=== PATIENT | male | born 1945 | race Caucasian/White ===

== ENCOUNTER → 2019-01-11 12:03 | Outpatient (CLI) | payer MEDICARE, OTHER, SELFPAY ==
--- NOTE | 2019-01-11 12:14 | XR_ITS ---
PROCEDURE: XR FINGER LT MIN 2V CLINICAL INDICATION: LT THUMB INJURY Smashing injury with pain COMPARISON: No exams were available for comparison FINDINGS: There is a longitudinal fracture present involving the distal phalanx of the thumb. The fracture is nondisplaced. No obvious articular involvement at the interphalangeal joint. No radiopaque foreign body IMPRESSION: Nondisplaced longitudinal fracture distal phalanx of the thumb Dictated by: Marcell Briscoe MD 01/11/2019 12:34 Electronically signed by Marcell Briscoe MD in [place] 01/11/2019 12:34
== END ==
PROVIDERS: PCP Physician Assistant; Visit Provider Physician Assistant
DX: S69.92XA Unspecified injury of left wrist, hand and finger(s), initial encounter (principal)
CPT/HCPCS: 73140

== ENCOUNTER → 2020-05-20 10:58 | Outpatient (POV) | payer MEDICARE, OTHER, SELFPAY | PROVIDERS: Visit Provider Dermatology | DX: Z00.00 Encounter for general adult medical examination without abnormal findings (principal) ==

== ENCOUNTER → 2021-03-17 10:33 | Outpatient (CLI) | payer MEDICARE, OTHER, SELFPAY | PROVIDERS: Visit Provider Nurse Practitioner | DX: Z20.822 Contact with and (suspected) exposure to COVID-19 (principal) | CPT/HCPCS: C9803; U0003; U0005 ==

== ENCOUNTER → 2021-03-23 08:27 | Outpatient (CLI) | payer MEDICARE, OTHER, SELFPAY | PROVIDERS: Visit Provider Nurse Practitioner | DX: Z20.822 Contact with and (suspected) exposure to COVID-19 (principal) | CPT/HCPCS: C9803; U0003; U0005 ==

== ENCOUNTER → 2022-04-29 14:35 | Outpatient (CLI) | payer MEDICARE, OTHER, SELFPAY ==
--- NOTE | 2022-04-29 14:48 | ECG_ITS ---
APPROVED REPORT Exam: Resting ECG HR:80 bpm ECG Measurements Heart Rate 80 AXES AZ 188 P 83 QRSd 150 QRS -68 QT 389 T 47 QTc 426 Conclusion SINUS RHYTHM WITH OCCASIONAL SUPRAVENTRICULAR PREMATURE COMPLEXES RIGHT BUNDLE BRANCH BLOCK [120+ ms QRS DURATION, UPRIGHT V1, 40+ ms S IN I/aVL/V4/V5/V6] LEFT ANTERIOR FASCICULAR BLOCK [QRS AXIS <= -45, QR IN I, RS IN II] VOLTAGE CRITERIA FOR LVH [MEETS CRITERIA IN ONE OF: R(aVL), S(V1), R(V5), R(V5/V6)+S(V1)] POSSIBLE SEPTAL MYOCARDIAL INFARCTION , PROBABLY OLD [30 ms Q WAVE IN V1/V2] ABNORMAL ECG UNCONFIRMED REPORT Electronically signed by : Thanh Jo MD 04/29/2022 17:04:57
== END ==
PROVIDERS: PCP Family Medicine; Visit Provider Family Medicine
DX: Z01.810 Encounter for preprocedural cardiovascular examination (principal)
CPT/HCPCS: 93005

== ENCOUNTER → 2022-05-04 14:32 | Outpatient (CLI) | payer MEDICARE, OTHER, BC, SELFPAY | PROVIDERS: PCP Family Medicine; Visit Provider Nurse Practitioner Family | DX: R94.31 Abnormal electrocardiogram [ECG] [EKG] (principal); Z01.810 Encounter for preprocedural cardiovascular examination | CPT/HCPCS: 93306 ==

== ENCOUNTER → 2022-05-05 11:08 | Outpatient (CLI) | payer MEDICARE, BC, SELFPAY | PROVIDERS: PCP Family Medicine; Visit Provider Nurse Practitioner Family | DX: R94.31 Abnormal electrocardiogram [ECG] [EKG] (principal); Z01.810 Encounter for preprocedural cardiovascular examination | CPT/HCPCS: 78452; 93017; A9502; J2785 ==

== ENCOUNTER 2023-12-04 09:55 | Inpatient (IN) | payer MEDICARE, BC, SELFPAY ==
[2023-12-04] VITALS (19 sets, daily range): BP systolic 95–198; BP diastolic 56–90; PULSE 45–84; RESP 12–26; TEMP 35.7–36.8; O2SAT 94–99; BMI 24.3; BMI 23.7
--- NOTE | 2023-12-04 | IR_ITS ---
APPROVED REPORT Patient Location: Emergent Office Manager: LENA Guallpa RT (R) PROCEDURES Left heart catheterization Left ventriculogram Selective coronary angiogram Placement of the emergent right internal jugular vein access with temporary transvenous pacemaker placement to the right ventricle Drug-eluting stent deployment to the mid LAD Drug-eluting stent deployment to the second obtuse marginal artery within the circumflex artery INDICATION Acute coronary syndrome, Third-degree heart block, Asystole, Coronary artery disease Informed consent was obtained prior to the procedure. COMPLICATIONS None Estimated Blood Loss: Less than 10 mls TECHNIQUE One percent lidocaine used to anesthetize the right anterior aspect of the wrist. The right radial artery was accessed via the Seldinger technique. A 6 Anguillan sheath was placed in the right radial artery. 2.5 mg of Verapamil, 800 mcg of nitroglycerin, 1mg Lidocaine and 5000 U Heparin were given through the arterial sheath. The papa catheter was also used to perform left heart catheterization, left ventriculogram and selective coronary angiogram. During the diagnostic angiogram the temporary transcutaneous pacemaker would no longer capture and patient experienced prolonged episode of asystole. Just prior to starting chest compressions patient started to recover with intrinsic beats. The right internal jugular vein was already sterilely prepped therefore immediate access was obtained in the right internal jugular vein and a 5 Anguillan sheath was placed. Pacemaker wire had already been prepped prior to the patient's arrival into the Analytical Data Scientist in anticipation for a pacemaker in the temporary transvenous pacemaker was placed into the right ventricular septal side which immediately captured with a heart rate of 80. At this point therapeutic heparin was administered giving a therapeutic ACT and it was decided to revascularize the mid LAD and circumflex artery in the event these were ischemic lesions contributing to the ischemic third-degree heart block. A Choice PT extra-support wire was placed into the mid LAD and a 3.5 x 12 mm Watson frontier stent was deployed at 20 shahrzad reducing the stenosis. A 3.5 x 8 mm noncompliant balloon was deployed in the midportion at 24 shahrzad to post dilate. Spasm occurred on both ends of the stent therefore 800 mcg of intracoronary nitroglycerin were administered. An additional Choice PT extra-support wire was placed into the second obtuse marginal artery where a 2.75 x 18 mm Daniel frontier stent was deployed in the second obtuse marginal artery at 18 shahrzad reducing the severe stenosis to 0%. GALILEO-3 flow was present before and after the procedure. At the end of the procedure patient had an intrinsic rate of 83 therefore the pacemaker was set to VVI of 70 with an output of 10 mA. The apparatus was removed the sheath was removed the right IJ and transvenous pacemaker were secured in place with Tegaderm and patient was transferred to the postop holding in stable condition ANGIOGRAPHIC RESULTS The left main artery Normal The left anterior descending artery Has proximal 40 to 50% stenosis which then extends into a medium sized first diagonal artery producing an ostial 50% stenosis. Distal to the first diagonal artery the mid LAD has a concentric 80% stenosis. The LAD is large and wraps the apex The circumflex artery Is a large-caliber vessel with mild diffuse luminal regularities in the proximal and midportion which extends mid first obtuse marginal artery. The second obtuse marginal artery is large and has proximal 80% stenosis The right coronary artery Is codominant and has proximal 30% calcified stenoses with distal 20% stenosis The ECHAVARRIA ventriculogram reveals Normal 65% The left ventricular end-diastolic pressure 10 mmHg IMPRESSION Third-degree AV block of unknown etiology possibly multifactorial from combination of beta-blockers and possibly ischemic produced Successful stenting of the mid LAD severe disease reduced to 0% with 1 drug-eluting stent Successful stenting of the large second obtuse marginal artery severe disease reduced to 0% with 1 drug-eluting stent Successful placement of temporary transvenous pacemaker from the right internal jugular vein with implantation within the right ventricle along the high septal side Normal ejection fraction Normal LVEDP PLAN 1. Plavix and aspirin 2. Maintain VVI pacemaker at 70 overnight with plans to proceed with permanent pacemaker placement tomorrow 3. LDL less than 55 to be 2 that high intensity statin 4. Keep transcutaneous pacemaker in place in the event the transvenous pacer comes dislodged 5. Echocardiogram in the morning 6. N.p.o. after midnight for anticipated pacemaker placement in the morning 7. Patient has a low LVEDP with normal ejection fraction and should be able to tolerate IV fluids in the event of hypotension Electronically signed by : Arnulfo Arreola MD 12/04/2023 11:53:30
--- NOTE | 2023-12-04 09:57 | ECG_ITS ---
APPROVED REPORT Exam: Resting ECG HR:39 bpm ECG Measurements Heart Rate 39 AXES QRSd 154 QRS -71 QT 499 T -35 QTc 425 Conclusion third degree heart block ST DEPRESSION, CONSIDER SUBENDOCARDIAL INJURY [0.1+ mV ST DEPRESSION] CRITICAL TEST RESULT UNCONFIRMED REPORT Electronically signed by : DESTINEY BABIN, 12/04/2023 16:30:21
--- NOTE | 2023-12-04 10:00 | PC.NURSE ---
nursing out to the awning to assist pt out of the car. pt noted to be diaphoretic,confused,weak, and lethargic. states symptoms started approx 0920 while pt was folding clothes. pt had a syncopal episode and hit his head. MD at bedside
--- NOTE | 2023-12-04 10:01 | PC.NURSE ---
fsbs 199.
--- NOTE | 2023-12-04 10:10 | PC.NURSE ---
speaking with Dr Arreola
--- NOTE | 2023-12-04 10:21 | CT_ITS ---
PROCEDURE INFORMATION: Exam: CT Head Without Contrast Exam date and time: 12/04/2023 10:30 AM Age: 77 years old Clinical indication: Injury or trauma; Additional info: Fall TECHNIQUE: Imaging protocol: Computed tomography of the head without contrast. Radiation optimization: All CT scans at this facility use at least one of these dose optimization techniques: automated exposure control; mA and/or kV adjustment per patient size (includes targeted exams where dose is matched to clinical indication); or iterative reconstruction. COMPARISON: No relevant prior studies available. FINDINGS: Brain: Patchy hypoattenuation in the periventricular and subcortical white matter, consistent with chronic small vessel ischemia. No CT evidence of acute ischemia. No acute hemorrhage. No mass effect or midline shift. Cerebral ventricles: No ventriculomegaly. Paranasal sinuses: Visualized sinuses are unremarkable. No fluid levels. Mastoid air cells: Visualized mastoid air cells are well aerated. Orbital cavities: Bilateral lens extractions. Bones: Unremarkable. No acute fracture. Soft tissues: Unremarkable. IMPRESSION: No acute intracranial abnormality.
[2023-12-04 10:25] LABS: Lactate Venous 3.8 mmol/L (0.4-2.0); VBG Base Excess -1.2 mmol/L (-2.4-2.3); VBG HCO3 22.1 mmol/L (23-30); VBG Oxygen Saturation 95.5 % (50-70); VBG PCO2 29.8 mmol/L (35-51); VBG PH 7.49 mmol/L (7.31-7.41); VBG PO2 71.7 mmol/L (28-40); VBG Total CO2 23.1 mmol/L (23-27)
--- NOTE | 2023-12-04 10:38 | PC.NURSE ---
pt off unit with cathlab
[2023-12-04 10:39] LABS: Chloride 103 mmol/L (98-107); Sodium 137 mmol/L (136-145)
[2023-12-04 10:40] LABS: Potassium 3.4 mmoL/L (3.5-5.1)
[2023-12-04 10:42] LABS: Blood Urea Nitrogen 22 mg/dl (9-20); Creatinine Clearance Estimated 66 mL/min (50-200); Estimated Glomerular Filt Rate 93 ml/min (>60); GFR (African American) 113 ML/MIN (>60)
[2023-12-04 10:43] LABS: Anion Gap 14.4 mEq/L (5-15); Calcium 9.7 mg/dl (8.4-10.2); Carbon Dioxide 23 mmol/L (22.0-30.0); Glucose 206 mg/dl (74-100)
[2023-12-04 10:46] LABS: Basophils # 0.1 K/mm3 (0-0.2); Basophils % 1.1 % (0.1-2.0); Eosinophils # 0.4 K/mm3 (0.0-0.4); Eosinophils % 3.8 % (0.1-12.0); Hematocrit 44.3 % (42.0-52.0); Hemoglobin 15.4 g/dL (14.1-18.0); Lymphocytes # 5.3 K/mm3 (0.7-4.5); Lymphocytes % 45.8 % (10-50); Mean Corpuscular HGB Conc 34.8 g/dL (31.8-35.4); Mean Corpuscular Hemoglobin 32.6 pg (27.0-31.2); Mean Corpuscular Volume 93.7 fl (80-94); Mean Platelet Volume 10.8 fl (7.4-10.4); Monocytes # 0.9 K/mm3 (0.1-1.0); Monocytes % 7.9 % (1.7-9.3); Neutrophils # 4.8 K/mm3 (1.8-7.8); Neutrophils % 41.4 % (37.0-80.0); Platelet Count 155 K/mm3 (142-424); Red Blood Count 4.73 M/mm3 (4.60-6.20); Red Cell Distribution Width 13.7 % (11.5-17.5); White Blood Count 11.5 K/mm3 (4.8-10.8)
--- NOTE | 2023-12-04 10:50 | HMH.EDGENADL ---
Discharge Plan Disposition Patient Disposition: Admitted Clinical Impressions Clinical Impression: Third degree heart block, Syncope, Hematoma of scalp Discharge ED Provider: Mary Hui General Adult HPI General Chief complaint: Syncope Stated complaint: weak Time Seen by Provider: 12/04/23 10:48 Mode of Arrival: Wheelchair Source of Information: Patient and Spouse Limitations: Altered Mental Status Description of Symptoms (Recalled from ER Triage Doc. 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 Patient reports that he was folding laundry and in his usual state of health around 920 this morning when he suddenly passed out. He states that he woke up feeling very sweaty, nauseated, and generally unwell. He denies any other concerns or complaints and states that he has not had any recent illnesses or issues. Related Data Previous Rx's ?Medication ?Instructions ?Recorded bisoprolol fumarate 5 mg tablet 5 mg PO DAILY #90 tabs 01/05/23 Allergies Allergy/AdvReac Type Severity Reaction Status Date / Time No Known Allergies Allergy Verified 01/05/23 08:29 [facility] Disclaimer: The information contained in this section may have been updated after the patient was seen, as this information can be updated by other users. Medical History Right arm numbness Encounter for pre-operative cardiovascular clearance Abnormal electrocardiogram [ECG] [EKG] Surgical History History of appendectomy Family History Other No significant family history Social History Smoking Status: Never smoker alcohol intake: never current occupational status: retired Travel in the last 8 weeks: None Other Medical History Have you received the Pneumonia Vaccine: No ROS Obtained: Yes All systems reviewed & no additional complaints except as documented Physical Exam General General appearance: lethargic and in distress Comment: In and out of consciousness, very ill-appearing. Very diaphoretic. Head Head exam: atraumatic and normocephalic Eye Eye exam: Present normal appearance, PERRL and EOMI ENT ENT exam: Present normal oropharynx, mucous membranes dry and normal external ear exam Neck Neck exam: Present normal inspection, full ROM and trachea midline; Absent tenderness Chest Chest inspection: Present normal inspection and symmetric chest wall rise; Absent tenderness Respiratory Respiratory exam: Present normal lung sounds bilaterally; Absent respiratory distress, wheezes, stridor or accessory muscle use Cardiovascular Cardiovascular exam: Present bradycardia and irregular rhythm Abdominal Exam Abdominal exam: Present soft; Absent distention, tenderness or guarding Extremities Exam Extremities exam: Present normal inspection, full ROM and normal capillary refill; Absent tenderness or edema Back Exam Back exam: Present normal inspection and full ROM; Absent tenderness Neurological Exam Neurological exam: Absent alert Expanded Neurological Exam Coma scale eye opening: To voice Coma scale motor response: Obeys commands Coma scale verbal response: Confused Coma scale total: 13 Psychiatric Psychiatric exam: Present anxious Skin Skin exam: Present diaphoresis Medical Decision Making Medical Records Medical records reviewed: Yes I reviewed the patient's medical records. Screening: Per USPSTF and CDC recommendations, given the prevalence of disease in our region, it is our hospital?s policy to screen for HIV and viral Hepatitis for all patients aged 18 and over and those with ongoing risk factors. Shawn Inquiry Pt receiving controlled substance: No Vital Signs: 12/04/23 09:56 Temperature 97.7 F Temperature Source Axillary Pulse Rate [Right] 45 L Respiratory Rate 14 Blood Pressure [Right Arm] 198/90 H Blood Pressure Mean [Right Arm] 126 02 Sat by Pulse Oximetry 99 Oxygen Delivery Method Room Air Lab Data Lab results reviewed: Yes I reviewed the patient's lab results. Lab Results 12/04/23 10:00: WBC 11.5 H, RBC 4.73, Hgb 15.4, Hct 44.3, MCV 93.7, MCH 32.6 H, MCHC 34.8, RDW 13.7, Plt Count 155, MPV 10.8 H, Neut % (Auto) 41.4, Lymph % (Auto) 45.8, Wilkes % (Auto) 7.9, Eos % (Auto) 3.8, Baso % (Auto) 1.1, Neut # (Auto) 4.8, Lymph # (Auto) 5.3 H, Wilkes # (Auto) 0.9, Eos # (Auto) 0.4, Baso # (Auto) 0.1, VBG pH 7.49 H, VBG pCO2 29.8 L, VBG pO2 71.7 H, VBG HCO3 22.1 L, VBG Total CO2 23.1, VBG O2 Saturation 95.5 H, VBG Base Excess -1.2, VBG Lactic Acid 3.8 H, Sodium 137, Potassium 3.4 L, Chloride 103, Carbon Dioxide 23, Anion Gap 14.4, BUN 22 H, Creatinine 0.80, Estimated Creat Clear 66, Estimated GFR 93, Est GFR ( Amer) 113, Glucose 206 H, Calcium 9.7 12/04/23 10:00 12/04/23 10:00 Orders (Tests/Meds): ED MEDICATIONS Generic Name Dose Route Start Last Admin Trade Name Freq PRN Reason Stop Dose Admin Aspirin 300 mg 12/04/23 10:49 Aspirin 300mg Suppository RC 12/04/23 10:50 ONCE ONE Fentanyl Citrate 50 mcg 12/04/23 10:30 Fentanyl 100mcg/2ml Vial IV 12/04/23 22:30 Q3MINP PRN Moderate to Severe Pain (4-10) Fentanyl Citrate 25 mcg 12/04/23 10:30 Fentanyl 250mcg/5ml Vial IV 12/04/23 22:30 Q3MINP PRN Moderate to Severe Pain (4-10) Fentanyl Citrate 50 mcg 12/04/23 10:30 Fentanyl 250mcg/5ml Vial IV 12/04/23 22:30 Q3MINP PRN Moderate to Severe Pain (4-10) Fentanyl Citrate 25 mcg 12/04/23 10:30 Fentanyl 100mcg/2ml Vial IV 12/04/23 22:30 Q3MINP PRN Moderate to Severe Pain (4-10) Flumazenil 0.2 mg 12/04/23 10:30 Flumazenil 0.1mg/Ml 5ml Vial IV 12/04/23 22:30 NEEDED PRN Sedation Glucagon 1 mg 12/04/23 10:50 Glucagon 1 Mg/Ml Vial IV 12/04/23 10:51 ONCE ONE Heparin Sodium (Porcine) 10,000 unit 12/04/23 10:30 Heparin 1,000 Units/Ml 10ml Vial (Ampoule Washing Machine Operator) IV 12/04/23 14:30 NEEDED PRN Emergency Box Home Theatre Technician Heparin Sodium (Porcine) 5,000 unit 12/04/23 10:49 Heparin Sodium 5,000 Unit/Ml Vial IV 12/04/23 10:50 ONCE ONE Hydralazine HCl 20 mg 12/04/23 10:30 Hydralazine 20mg/Ml Vial IV 12/04/23 14:30 ONCE PRN sbp>160 Adenosine 180 mg/ Sodium 90 mls @ 416.399 mls/hr 12/04/23 10:30 Chloride IV 12/04/23 14:30 ONCE PRN fractional flow reserve 180 MCG/KG/MIN Adenosine 90 mg/ Sodium 90 mls @ 832.799 mls/hr 12/04/23 10:30 Chloride IV 12/04/23 14:30 ONCE PRN fractional flow reserve 180 MCG/KG/MIN Sodium Chloride 1,000 mls @ 25 mls/hr 12/04/23 10:30 Sod Chloride 0.9% 500ml Bag IV 12/05/23 10:30 .Q25H JOSEE Dopamine HCl/Dextrose 250 mls @ 8.675 mls/hr 12/04/23 10:52 Dopamine 400mg/250ml D5w IV 01/03/24 10:51 .Q24H JOSEE Protocol 3 MCG/KG/MIN Labetalol HCl 20 mg 12/04/23 10:30 Labetalol 20mg/4ml Syringe IV 12/04/23 14:30 ONCE PRN sbp>160 Midazolam HCl 1 mg 12/04/23 10:30 Midazolam 2mg/2ml Vial IV 12/04/23 22:30 Q3MINP PRN Sedation Midazolam HCl 1 mg 12/04/23 10:30 Midazolam Hcl 1mg/1ml 5ml Vial IV 12/04/23 22:30 Q3MINP PRN Sedation Midazolam HCl 2 mg 12/04/23 10:50 Midazolam 2mg/2ml Vial IV 12/04/23 10:51 ONCE ONE Morphine Sulfate 4 mg 12/04/23 10:49 Morphine 4mg/Ml Syringe IV 12/04/23 10:50 ONCE ONE Naloxone HCl 0.4 mg 12/04/23 10:30 Naloxone 0.4mg/Ml Vial IV 12/04/23 22:30 Q5MINP PRN Decreased Respirations Nitroglycerin 800 mcg 12/04/23 10:30 Nitroglycerin 800mcg/8ml Syr (Ampoule Washing Machine Operator) IA 12/04/23 14:30 NEEDED PRN Emergency Box Home Theatre Technician Ondansetron HCl 4 mg 12/04/23 10:49 Ondansetron 4mg/2ml Vial IV 12/04/23 10:50 ONCE ONE Protamine Sulfate 50 mg 12/04/23 10:30 Protamine Sulfate 50mg/5ml Vial (Ampoule Washing Machine Operator) IV 12/04/23 14:30 ONCE PRN act>200 Discontinued Medications Generic Name Dose Route Start Last Admin Trade Name Juan Carlos PRN Reason Stop Dose Admin Diphenhydramine HCl 50 mg 12/04/23 10:30 Diphenhydramine 50mg/Ml Vial IV 12/04/23 10:31 ONCE ONE Heparin Sodium/Sodium Chloride 3,000 unit 12/04/23 10:30 Heparin 1,000 Units/500ml Ns (Ampoule Washing Machine Operator) IV 12/04/23 10:31 ONCE ONE Lidocaine HCl 20 ml 12/04/23 10:30 Lidocaine 1% 10ml Mdv IJ 12/04/23 10:31 ONCE ONE Lidocaine HCl 20 ml 12/04/23 10:30 Lidocaine 1% 5ml Pf Vial IJ 12/04/23 10:31 ONCE ONE Verapamil HCl 2.5 mg 12/04/23 10:30 Verapamil 2.5mg/Ml 2ml Vial IV 12/04/23 10:31 ONCE ONE ORDERS Category Date Time Status CT head/brain wo con Stat Cat Scan 12/04/23 10:21 Completed Basic Metabolic Panel Stat Lab 12/04/23 10:00 Completed Complete Blood Count Auto Diff Stat Lab 12/04/23 10:00 Completed HIV (1&2) Antibody Rapid Stat Lab 12/04/23 10:00 Received Hep C Ab with Reflex to RNA Stat Lab 12/04/23 10:00 Received Trop I [Troponin I] Stat Lab 12/04/23 10:00 Received Venous Blood Gas Routine RT 12/04/23 10:00 Completed ECG Data Tracing #1: I reviewed this ECG and interpreted as documented below: Third-degree heart block with a ventricular rate of [address]/T wave changes especially in the inferior leads. Concern for acute ischemia. ECG initial impression date: 12/04/23 ECG initial impression time: 09:48 Medical Decision Narrative: In summary, this patient is a 77-year-old male presenting to the Emergency Department for evaluation of syncope, diaphoresis, general weakness, and generally feeling unwell. Differential diagnoses considered include but are not limited to ACS, intracranial hemorrhage, vasovagal syncope, dysrhythmia. Ruling out the most morbid conditions drove assessment. It should be noted patient's history includes frequent PVCs for which she is on metoprolol which may or may not be at goal therapy. This complicates all aspects of care by increasing patient's risk for morbidity. I reviewed patient's past medical records and noted cardiology evaluations for the frequent PVCs noted on routine preop EKG as well as prior echo showing an EF of 55 to 60%. He is on bisoprolol. Patient arrives critically ill with heart rate in the 20s to 30s, recurrent syncope, and he is very ill-appearing with significant diaphoresis. Initial blood pressure was hypertensive. O2 saturation normal. EKG concerning for third-degree heart block. I also noted some subtle ST/T wave changes, unclear if this could potentially be STEMI so I did send EKG to Dr. Arreola with cardiology and consulted him emergently. Patient was given 1 mg of glucagon, 0.5 mg of atropine, rectal aspirin. He was started on dopamine drip at 3 mcg/kg/min without significant improvement in his clinical condition. Given this, decision made to start transcutaneously pacing. Dr. Arreola advised we could activate the Ampoule Washing Machine Operator. He does have a knot on the back of his head from hitting his head after he passed out, so I wanted to go ahead and emergently obtain a CT scan of the head without contrast to rule out significant cranial hemorrhage in the setting of syncope, hypertension, and bradycardia. This was done and I independently interpreted the image prior to radiology read noted no acute intracranial hemorrhage. Patient was given heparin bolus in the ED once this was excluded. I considered obtaining CT cervical spine as well, however this was not done at this time because it was felt that getting the patient back to his room quickly for medical stabilization was more important. Transcutaneous pacing was started and he had good capture at 42 mA with a rate of 70 bpm. Patient did not tolerate this very well with significant pain. He also had vomiting after administration of glucagon. He was given 4 mg of IV Zofran. He was also given 4 mg of IV morphine, which did not help with the pain that he had from the pacing, so then he was given 2 mg of IV Versed. He tolerated this well. He was placed on supplemental oxygen and was monitored continuously on cardiac telemetry. After administration of medications, he tolerated pacing transcutaneously very well. Ultimately, Ampoule Washing Machine Operator was activated and patient was transported there by myself and nursing staff in relatively stable condition. Formal handoff to Ampoule Washing Machine Operator team. I remained at the bedside for entirety of patient's ED stay adjusting pacer, administering medications, and monitoring response. Critical Care Critical Care Time Critical Care Time: Yes Attestation: On 12/04/23, the high probability of a clinically significant, sudden or life threatening deterioration of the following system(s) required my full and direct attention, intervention and personal management. The time I documented below is in addition to time spent performing reported procedures but includes the following listed in this critical care notation. Total Time Total Critical Care Time: 40
[2023-12-04] MEDS: MORPHINE 4MG/ML SYRINGE 4 MG IV (11:07)
[2023-12-04] MEDS: ONDANSETRON 4MG/2ML VIAL 4 MG IV ×2 (11:07→13:00)
[2023-12-04] MEDS: ASPIRIN 300MG SUPPOSITORY 300 MG RC (11:07)
[2023-12-04] MEDS: HEPARIN SODIUM 5,000 UNIT/ML VIAL 5000 UNIT IV (11:07)
[2023-12-04] MEDS: DOPAMINE HCL/D5W 250 ML 8.68 MG IV (11:08)
[2023-12-04] MEDS: GLUCAGON 1 MG/ML VIAL IV (11:08)
[2023-12-04] MEDS: MIDAZOLAM 2MG/2ML VIAL 2 MG IV ×2 (11:08→11:39)
[2023-12-04] MEDS: ATROPINE 1MG/10ML SYRINGE (CRASH CART) 0.5 MG IV (11:12)
[2023-12-04 11:19] LABS: Troponin I < 0.01 ng/ml (0.00-0.034)
[2023-12-04] MEDS: LIDOCAINE 1% 10ML MDV 20 ML IJ (11:38)
[2023-12-04] MEDS: HEPARIN 1,000 UNITS/ML 10ML VIAL (CATH LAB) 10000 UNIT IV (11:39)
[2023-12-04] MEDS: FENTANYL 100MCG/2ML VIAL 50 MCG IV (11:40)
[2023-12-04] MEDS: diphenhydrAMINE 50MG/ML VIAL 50 MG IV (11:40)
[2023-12-04] MEDS: VERAPAMIL 2.5MG/ML 2ML VIAL 2.5 MG IV (11:40)
[2023-12-04] MEDS: NITROGLYCERIN 800MCG/8ML SYR (CATH LAB) 800 MCG IA (11:41)
[2023-12-04] MEDS: 0.9 % SODIUM CHLORIDE 500 ML 25 ML IV (11:41)
[2023-12-04] MEDS: HEPARIN 1,000 UNITS/500ML NS (CATH LAB) 3000 UNIT IV (11:41)
[2023-12-04] MEDS: CLOPIDOGREL 300MG TABLET 600 MG PO (11:46)
[2023-12-04] MEDS: IOPAMIDOL-370 (76%);100ML BOTTLE 170 ML IV (11:59)
[2023-12-04 12:01] LABS: CATHL Activated Clotting Time 267 SEC (74-125)
[2023-12-04 12:01] LABS: CATHL Activated Clotting Time 240 SEC (74-125)
[2023-12-04] MEDS: BELLADONNA ALKALOIDS 60 ML ML PO (13:10)
[2023-12-04 14:22] LABS: Reflex Lactic Add Lactic Reflex
[2023-12-04 14:37] LABS: HIV (1&2) Antibody Rapid NONREACTIVE (NONREACTIVE)
[2023-12-04 15:07] LABS: Lactic Acid Follow Up (RFLX 1) 1.3 mmol/L (0.7-2.1)
--- NOTE | 2023-12-04 16:11 | P.HP_ITS ---
History of Present Illness *Admission Date: 12/04/23 *Reason for visit:: Third-degree heart block s/p transvenous pacing *History of present illness: Nathen Montes is a 77-year-old male with a medical history significant for frequent PVCs who presented to the ED from home after syncope, diaphoresis, and not feeling well. Patient states he was doing well this morning, but while doing laundry around 920 this morning he passed out. He woke up feeling really ill, diaphoretic, nauseous. He was then brought to the hospital via EMS. Workup in the ED significant for EKG showing third-degree heart block, heart rate in 39, with patient diaphoretic, lethargic. Since patient takes bisoprolol at home, patient was given glucagon 1 mg, 0.5 mg atropine, and rectal aspirin. He was started on dopamine drip without significant improvement. Transcutaneous pacing was then started. Cathode Ray Tube Salvage Processor was activated, with head CT was obtained due to hematoma on scalp to rule out intracranial bleed. CT head was negative. S/p PCI with 2 stents in LAD, OM and transvenous right IJ. Case was discussed with ED provider and decision was made to admit patient for third-degree heart block requiring transvenous pacing, CAD s/p [address] Arreola plans to place permanent pacemaker tomorrow morning. [facility] Disclaimer: The information contained in this section may have been updated after the pat ient was seen, as this information can be updated by other users. Medical History Right arm numbness Encounter for pre-operative cardiovascular clearance Abnormal electrocardiogram [ECG] [EKG] Surgical History History of appendectomy Family History Other No significant family history Social History (Updated 12/04/23 @ 12:54 by Brenda Negron RN) Smoking Status: Never smoker alcohol intake: current current occupational status: retired Travel in the last 8 weeks: None Other Medical History Have you received the Flu Vaccine for this season: No Have you received the Pneumonia Vaccine: No Meds Home Medications and Allergies Home Medications ?Medication ?Instructions ?Recorded ?Confirmed ?Type bisoprolol fumarate 5 mg tablet 5 mg PO DAILY #90 tabs 01/05/23 12/04/23 Rx fluorometholone 0.1 % eye 1 drp Eye-Right DAILY 12/04/23 12/04/23 History drops,suspension New Prescriptions to Start Prescriptions: Allergies Allergy/AdvReac Type Severity Reaction Status Date / Time No Known Allergies Allergy Verified 01/05/23 08:29 Exam Data for Last 24 hours Vital signs and Labs for Last 24 Hours: Temp Pulse Resp BP Pulse Ox O2 Del Method O2 Flow Rate 96.3 F L 70 18 127/70 96 Room Air 5 12/04/23 14:15 12/04/23 15:15 12/04/23 15:15 12/04/23 15:15 12/04/23 15:15 12/04/23 15:15 12/04/23 11:12 Laboratory Results - last 24 hr 12/04/23 10:00: WBC 11.5 H, RBC 4.73, Hgb 15.4, Hct 44.3, MCV 93.7, MCH 32.6 H, MCHC 34.8, RDW 13.7, Plt Count 155, MPV 10.8 H, Neut % (Auto) 41.4, Lymph % (Auto) 45.8, [place] % (Auto) 7.9, Eos % (Auto) 3.8, Baso % (Auto) 1.1, Neut # (Auto) 4.8, Lymph # (Auto) 5.3 H, [place] # (Auto) 0.9, Eos # (Auto) 0.4, Baso # (Auto) 0.1, VBG pH 7.49 H, VBG pCO2 29.8 L, VBG pO2 71.7 H, VBG HCO3 22.1 L, VBG Total CO2 23.1, VBG O2 Saturation 95.5 H, VBG Base Excess -1.2, VBG Lactic Acid 3.8 H, Sodium 137, Potassium 3.4 L, Chloride 103, Carbon Dioxide 23, Anion Gap 14.4, BUN 22 H, Creatinine 0.80, Estimated Creat Clear 66, Estimated GFR 93, Est GFR ( Amer) 113, Glucose 206 H, Calcium 9.7, Troponin I < 0.01, HIV 1&2 Antibody Rapid Nonreactive 12/04/23 10:39: Activated Clotting Time 240 H* 12/04/23 11:10: Activated Clotting Time 267 H* 12/04/23 14:45: Lactate 1.3 I & O for Last 24 hours: Intake & Output 12/01/23 12/02/23 12/03/23 12/04/23 23:59 23:59 23:59 23:59 Output Total 250 / 250 Balance -250 / -250 Weight 77.111 kg Constitutional Constitutional: no acute distress Comments: Transcutaneous pacing pad intact over chest, transvenous pacing lines intact at right IJ site. *Routine HEENT Exam Head: Present normocephalic Eye: Present EOMI and PERRL ENT: Present mucous membranes moist *Routine Neck Exam Neck: Present supple; Absent lymphadenopathy *Routine Respiratory Exam Respiratory: Present CTA bilaterally *Routine Cardiovascular Exam Cardiovascular: Present RRR *Routine Abdominal Exam Abdominal: Present soft and normoactive bowel sounds; Absent tenderness *Routine Rectal Exam Rectal:: deferred *Routine Genitalia Exam Genitalia:: deferred *Routine Extremities Exam Extremities: Absent cyanosis, clubbing or edema *Routine Skin Exam Skin: Present warm; Absent rash *Routine Neurological Exam Neurological: Present alert and oriented X3 Assessment and Plan *Assessment and plan (1) Syncope: Status: Acute Category: Medical Code(s): R55 - Syncope and collapse (2) Third degree heart block: Status: Acute Category: Medical Code(s): I44.2 - Atrioventricular block, complete Plan Nathen Montes is a 77-year-old male with a medical history significant for frequent PVCs who presented to the ED from home after syncope, diaphoresis, and not feeling well. Patient states he was doing well this morning, but while doing laundry around 920 this morning he passed out. He woke up feeling really ill, diaphoretic, nauseous. He was then brought to the hospital via EMS. Workup in the ED significant for EKG showing third-degree heart block, heart rate in 39, with patient diaphoretic, lethargic. Since patient takes bisoprolol at home, patient was given glucagon 1 mg, 0.5 mg atropine, and rectal aspirin. He was started on dopamine drip without significant improvement. Transcutaneous pacing was then started. Cathode Ray Tube Salvage Processor was activated, with head CT was obtained due to hematoma on scalp to rule out intracranial bleed. CT head was negative. S/p PCI with 2 stents in LAD, OM and transvenous pacing right IJ. Patient reportedly became asystolic during PCI and CPR was performed and ROSC was achieved within 1 minute. Case was discussed with ED provider and decision was made to admit patient for third-degree heart block requiring transvenous pacing, CAD s/p 2 stents. #Syncope #Third-degree heart block #CAD s/p PCI with 2 stents 12/04/2023 #History of PVCs ? Initial EKG revealed third-degree heart block with nonspecific ST wave changes. Unclear if this is ischemic, home bisoprolol related, versus other. - S/p PCI with 2 stents in LAD, OM and transvenous pacing right IJ. ? VVI set for transvenous pacing at 70 bpm. ? Aspirin 81 mg, Plavix 75 mg, atorvastatin 40 mg. ? Avoid beta-blockers, including home bisoprolol. ? Follow-up morning TSH, A1c, lipid panel. ? Follow-up ECHO. ? Dr. Arreola plans to place permanent pacemaker tomorrow morning. N.p.o. at midnight ? Cardiology consulted, pending further recommendations. Lovenox 40 mg Full code
--- NOTE | 2023-12-04 19:15 | PC.NURSE ---
Transvenous pacer box in place, right IJ sheath c/d/i, Pacer box settings as follows: 10mV, 6V, 70p/min, Mode VVI. Low battery light indicator not illuminated.
[2023-12-04] MEDS: diphenhydrAMINE 50MG CAPSULE 50 MG PO (23:37)
[2023-12-04] MEDS: ACETAMINOPHEN 325MG TAB 650 MG PO (23:37)
[2023-12-05] VITALS (24 sets, daily range): BP systolic 90–163; BP diastolic 52–91; PULSE 70–88; RESP 12–20; TEMP 36.5–37.2; O2SAT 94–99; BMI 23.7
--- NOTE | 2023-12-05 | IR_ITS ---
APPROVED REPORT Patient Location: Inpatient Career Consultant: LENA Guallpa RT (R) PROCEDURES 1. Pocket formation for Permanent Pacemaker Placement. 2. Placement of an atrial sensing and pacing coil into the right atrial appendage. 3. Placement of a ventricular sensing and pacing coil in the right ventricular apex. 4. Permanent Pacemaker Placement. INDICATION Third degree heart block Informed consent was obtained prior to the procedure. COMPLICATIONS None Estimated Blood Loss: Less than 10 mls TECHNIQUE 1% Lidocaine with epinephrine used to anesthetized the left anterior aspect of the chest. Scalpel was used to make the initial cutaneous incision while electrocautery was used to dissect down tinto the fascia. The fascia was lifted off the pectoralis muscle and digitally manipulated creating a pocket for the pacemaker. The patient was then placed in Trendelenburg position and the subclavian vein was accessed twice via the Selinger technique, there are two wires in the vein. A 6 [place] sheath was placed under fluoroscopic guidance into the subclavian vein over one of the wires while keeping the other wire in place within the subclavian vein. The dilator was removed from the sheath. Using fluoroscopic guidance, the ventricular lead was placed into the right ventricular apex, screwed and secured into place. Electronic interrogation proved acceptable thresholds and voltage within the lead. Using 3-0 silk, the ventricular lead was then secured into place. Lead was secured to the facia using the 3-0 silk. Following this, the sheath was pealed away. An additional 6 [place] fresh sheath and dilator was placed over the existing wire. Using fluoroscopic guidance, the atrial lead was the placed into the right atrial appendage and screwed and secured in place. Electrical interrogation demonstrated acceptable thresholds and voltage number. The atrial lead was then secured into place using 3-0 silk. 1 gram of Ancef was used to flush the pocket. Following the pacemaker generator being secured to the fascia and in place, Monocryl was used to close the subcutaneous layers while chio were used to close the cutaneous layer. A pressure dressing was placed and the patient was transferred to the postop holding area in stable condition for postoperative care. INTERROGATION Generator Model number: Brittny RILEY DR, [id number] Generator Serial number: [id number] Atrial lead model number: Tendril STS, 52cm, 2087TC Atrial lead serial number: [id number] P-wave: 3.0mV Impedance: 450 ohms Threshold: 0.75V@0.4ms Right Ventricular lead model number: Vitor REYES, 58cm, 2087TC Right Ventricular lead serial number: [id number] R-wave: 6-7mV Impedance: 550 ohms Threshold: 0.5V@0.4ms Pacing Parameters: Mode: DDDR Base/Max Track:60 ppm / 130 ppm No diaphragmatic stimulation at 10 volts. IMPRESSION 1. Successful pocket formation for Permanent Pacemaker Placement. 2. Successful placement of an atrial sensing and pacing coil into the right atrial appendage. 3. Successful placement of a ventricular sensing and pacing coil in the right ventricular apex. 4. Successful permanent Pacemaker Placement. PLAN 1. Post op wound care, follow up office visit Electronically signed by : Arnulfo Arreola MD 12/06/2023 08:15:42
--- NOTE | 2023-12-05 | PC.NURSE ---
Transvenous pacer box in place, right IJ sheath site c/d/i, Pacer box settings as follows: 10mV, 6V, 70p/min, Mode VVI. Low battery light indicator not illuminated. Capture noted on tele.
--- NOTE | 2023-12-05 04:41 | PC.NURSE ---
Patient remained stable since shift change requiring no acute interventions. Dopamine infusing per MAR. Adequate urinary output via urinal. Heart, lung, and abdominal sounds WNL. Patient remained on bedrest r/t TVP. Patient has remained NPO since midnight for cardiac procedure this AM. Transvenous pacer box in place, right IJ sheath c/d/i, Pacer box settings as follows: 10mV, 6V, 70p/min, Mode VVI. Low battery light indicator not illuminated. NAD, VSS.
[2023-12-05 06:55] LABS: Basophils # 0.1 K/mm3 (0-0.2); Basophils % 0.6 % (0.1-2.0); Eosinophils # 0.2 K/mm3 (0.0-0.4); Eosinophils % 2.2 % (0.1-12.0); Hematocrit 40.3 % (42.0-52.0); Hemoglobin 14.3 g/dL (14.1-18.0); Lymphocytes # 1.8 K/mm3 (0.7-4.5); Lymphocytes % 21.2 % (10-50); Mean Corpuscular HGB Conc 35.4 g/dL (31.8-35.4); Mean Corpuscular Hemoglobin 32.4 pg (27.0-31.2); Mean Corpuscular Volume 91.8 fl (80-94); Mean Platelet Volume 9.9 fl (7.4-10.4); Monocytes # 0.6 K/mm3 (0.1-1.0); Monocytes % 7.3 % (1.7-9.3); Neutrophils # 5.8 K/mm3 (1.8-7.8); Neutrophils % 68.7 % (37.0-80.0); Platelet Count 111 K/mm3 (142-424); Red Cell Distribution Width 13.7 % (11.5-17.5); White Blood Count 8.4 K/mm3 (4.8-10.8)
[2023-12-05 07:28] LABS: Albumin Level 3.9 g/dl (3.5-5.0); Chloride 104 mmol/L (98-107); Potassium 3.6 mmoL/L (3.5-5.1); Sodium 136 mmol/L (136-145)
[2023-12-05 07:31] LABS: Alanine Aminotransferase 21 U/L (12-78); Albumin/Globulin Ratio 1.6 (1.1-1.8); Alkaline Phosphatase 55 U/L (38-126); Anion Gap 8.6 mEq/L (5-15); Aspartate Amino Transferase 34 U/L (17-59); Bilirubin,Total 0.7 mg/dl (0.2-1.3); Blood Urea Nitrogen 12 mg/dl (9-20); Carbon Dioxide 27 mmol/L (22.0-30.0); Creatinine Clearance Estimated 66 mL/min (50-200); Estimated Glomerular Filt Rate 109 ml/min (>60); GFR (African American) 132 ML/MIN (>60); Globulin 2.5 g/dL (1.3-3.2); Glucose 107 mg/dl (74-100); Total Protein,Serum 6.4 g/dl (6.3-8.2)
[2023-12-05 07:32] LABS: Calcium 8.6 mg/dl (8.4-10.2); Magnesium 2.1 mg/dl (1.6-2.3)
[2023-12-05 07:40] LABS: Hemoglobin A1C 5.3 % (4.0-6.0)
[2023-12-05 07:45] LABS: HDL Cholesterol 65 mg/dl (40-60)
[2023-12-05 07:56] LABS: Direct LDL Cholesterol 95.57 mg/dL (100-129)
[2023-12-05 08:01] LABS: Thyroid Stimulating Hormone 0.15 uIU/mL (0.465-4.68)
--- NOTE | 2023-12-05 08:20 | HMH.PHAINT1 ---
Pharmacy Intervention Comments: HOME MEDICATION LIST VERIFIED USING LIST FROM OUTPATIENT PHARMACY
[2023-12-05 08:27] LABS: Chol/HDL Ratio 2.8 (1-3.5); Cholesterol 181 mg/dl (140-200); Triglycerides 87 mg/dl (30-150); VLDL Cholesterol 17 mg/dL (0-40)
--- NOTE | 2023-12-05 08:45 | EXP.ACUTE.PN ---
Subjective *Date: 12/05/23 *Time: 08:45 Interval history: Patient is feeling well this morning. He denies feeling any better palpitations. He denies chest pain and shortness of breath. Family is at bedside. He awakes for placement of permanent pacemaker. Following is the cardiac cath report from 12/04/2023: IMPRESSION Third-degree AV block of unknown etiology possibly multifactorial from combination of beta-blockers and possibly ischemic produced Successful stenting of the mid LAD severe disease reduced to 0% with 1 drug-eluting stent Successful stenting of the large second obtuse marginal artery severe disease reduced to 0% with 1 drug-eluting stent Successful placement of temporary transvenous pacemaker from the right internal jugular vein with implantation within the right ventricle along the high septal side Normal ejection fraction Normal LVEDP PLAN 1. Plavix and aspirin 2. Maintain VVI pacemaker at 70 overnight with plans to proceed with permanent pacemaker placement tomorrow 3. LDL less than 55 to be 2 that high intensity statin 4. Keep transcutaneous pacemaker in place in the event the transvenous pacer comes dislodged 5. Echocardiogram in the morning 6. N.p.o. after midnight for anticipated pacemaker placement in the morning 7. Patient has a low LVEDP with normal ejection fraction and should be able to tolerate IV fluids in the event of hypotension 12/04/[address] IMPRESSION: No acute intracranial abnormality. Medical Exam Vital signs and Labs for Last 24 Hours: Vital Signs Temp Pulse Pulse Pulse Resp BP BP 12/05/23 08:00 97.7 F 12/05/23 07:00 70 16 124/72 12/05/23 06:00 70 15 90/67 L 12/05/23 05:00 70 14 130/70 12/05/23 04:00 98.4 F 70 20 120/69 12/05/23 03:00 70 12 96/56 L 12/05/23 02:00 70 12 98/57 L 12/05/23 01:00 70 15 116/66 12/05/23 00:00 70 12/05/23 00:00 70 12/05/23 00:00 98.5 F 70 15 108/62 L 12/04/23 23:00 70 20 126/66 12/04/23 22:00 70 14 110/67 12/04/23 21:00 66 14 128/69 12/04/23 20:00 70 12/04/23 20:00 70 12/04/23 20:00 98.3 F 70 12 114/76 12/04/23 18:53 12/04/23 18:15 84 20 95/75 L 12/04/23 17:15 74 22 137/78 12/04/23 17:00 12/04/23 16:00 97.6 F 12/04/23 16:00 80 12/04/23 16:00 12/04/23 16:00 71 26 H 122/78 12/04/23 15:15 70 18 127/70 12/04/23 15:00 12/04/23 14:45 71 18 120/73 12/04/23 14:15 96.3 F L 73 17 103/64 L 12/04/23 14:00 73 19 117/56 L 12/04/23 13:45 70 19 150/74 H 12/04/23 13:15 78 19 132/79 12/04/23 13:00 74 18 131/79 12/04/23 13:00 12/04/23 12:45 75 18 123/73 12/04/23 12:30 12/04/23 12:30 71 18 130/76 12/04/23 12:28 70 12/04/23 11:12 97.7 F 78 14 124/88 12/04/23 09:56 97.7 F 45 L 14 BP Pulse Ox O2 Del Method O2 Flow Rate 12/05/23 08:00 12/05/23 07:00 94 L Room Air 12/05/23 06:00 95 Room Air 12/05/23 05:00 95 Room Air 12/05/23 04:00 95 Room Air 12/05/23 03:00 96 Room Air 12/05/23 02:00 96 Room Air 12/05/23 01:00 95 Room Air 12/05/23 00:00 12/05/23 00:00 12/05/23 00:00 95 Room Air 12/04/23 23:00 96 Room Air 12/04/23 22:00 95 Room Air 12/04/23 21:00 95 Room Air 12/04/23 20:00 12/04/23 20:00 12/04/23 20:00 96 Room Air 12/04/23 18:53 Room Air 12/04/23 18:15 96 Room Air 12/04/23 17:15 97 Room Air 12/04/23 17:00 Room Air 12/04/23 16:00 12/04/23 16:00 12/04/23 16:00 Room Air 12/04/23 16:00 97 Room Air 12/04/23 15:15 96 Room Air 12/04/23 15:00 Room Air 12/04/23 14:45 94 L Room Air 12/04/23 14:15 99 Room Air 12/04/23 14:00 97 Room Air 12/04/23 13:45 99 Room Air 12/04/23 13:15 94 L Room Air 12/04/23 13:00 96 Room Air 12/04/23 13:00 Room Air 12/04/23 12:45 96 Room Air 12/04/23 12:30 Room Air 12/04/23 12:30 97 Room Air 12/04/23 12:28 12/04/23 11:12 Nasal Cannula 5 12/04/23 09:56 198/90 H 99 Room Air Intake and Output 12/04/23 12/05/23 12/05/23 19:59 03:59 11:59 Intake Total 240 / 240 200 / 440 0 / 440 Output Total 250 / 250 600 / 850 600 / 1450 Balance -10 / -10 -400 / -410 -600 / -1010 Intake: Intake, Oral Amount 240 / 240 200 / 440 0 / 440 Output: Output, Urine Amount 250 / 250 600 / 850 600 / 1450 Other: Number of Voids 1 1 Weight 170 lb 1.386 oz Patient Weight 12/05/23 11:59 Weight 170 lb 1.386 oz Laboratory Results - last 24 hr 12/04/23 10:00: WBC 11.5 H, RBC 4.73, Hgb 15.4, Hct 44.3, MCV 93.7, MCH 32.6 H, MCHC 34.8, RDW 13.7, Plt Count 155, MPV 10.8 H, Neut % (Auto) 41.4, Lymph % (Auto) 45.8, [place] % (Auto) 7.9, Eos % (Auto) 3.8, Baso % (Auto) 1.1, Neut # (Auto) 4.8, Lymph # (Auto) 5.3 H, [place] # (Auto) 0.9, Eos # (Auto) 0.4, Baso # (Auto) 0.1, VBG pH 7.49 H, VBG pCO2 29.8 L, VBG pO2 71.7 H, VBG HCO3 22.1 L, VBG Total CO2 23.1, VBG O2 Saturation 95.5 H, VBG Base Excess -1.2, VBG Lactic Acid 3.8 H, Sodium 137, Potassium 3.4 L, Chloride 103, Carbon Dioxide 23, Anion Gap 14.4, BUN 22 H, Creatinine 0.80, Estimated Creat Clear 66, Estimated GFR 93, Est GFR ( Amer) 113, Glucose 206 H, Calcium 9.7, Troponin I < 0.01, HIV 1&2 Antibody Rapid Nonreactive 12/04/23 10:39: Activated Clotting Time 240 H* 12/04/23 11:10: Activated Clotting Time 267 H* 12/04/23 14:45: Lactate 1.3 12/05/23 05:31: WBC 8.4 D, RBC 4.40 L, Hgb 14.3, Hct 40.3 L, MCV 91.8, MCH 32.4 H, MCHC 35.4, RDW 13.7, Plt Count 111 L D, MPV 9.9, Neut % (Auto) 68.7, Lymph % (Auto) 21.2, [place] % (Auto) 7.3, Eos % (Auto) 2.2, Baso % (Auto) 0.6, Neut # (Auto) 5.8, Lymph # (Auto) 1.8, [place] # (Auto) 0.6, Eos # (Auto) 0.2, Baso # (Auto) 0.1, Sodium 136, Potassium 3.6, Chloride 104, Carbon Dioxide 27, Anion Gap 8.6, BUN 12 D, Creatinine 0.70, Estimated Creat Clear 66, Estimated GFR 109, Est GFR ( Amer) 132, Glucose 107 H D, Hemoglobin A1c 5.3, Calcium 8.6, Magnesium 2.1, Total Bilirubin 0.7, AST 34, ALT 21, Alkaline Phosphatase 55, Total Protein 6.4, Albumin 3.9, Globulin 2.5, Albumin/Globulin Ratio 1.6, Triglycerides 87, Cholesterol 181, LDL Cholesterol Direct 95.57 L, VLDL Cholesterol 17, HDL Cholesterol 65 H, Cholesterol/HDL Ratio 2.8, TSH 0.15 L I & O for Labs for Last 24 Hours: Intake & Output 12/02/23 12/03/23 12/04/23 12/05/23 11:59 11:59 11:59 11:59 Intake Total 440 / 440 Output Total 1450 / 1450 Balance -1010 / -1010 Weight 170 lb 170 lb 1.386 oz Constitutional: Present no acute distress Comment:: rocha; appears comfortable lying in bed with family at bedside. Respiratory: Present CTA bilaterally (Anterior and posteriorly) Cardiac: Present Reg Rate and Rhythm (Some paced beats) and pedal pulses present GI: Present soft and normal bowel sounds; Absent distention, tenderness or guarding Extremities: Present normal inspection and full ROM; Absent tenderness, edema or calf tenderness Neuro: Present alert, awake and oriented x 3 Assessment and Plan *Assessment and plan (1) Third degree heart block: Status: Acute Category: Medical Code(s): I44.2 - Atrioventricular block, complete (2) Stented coronary artery: Status: Acute Category: Surgical Code(s): Z95.5 - Presence of coronary angioplasty implant and graft (3) Syncope: Status: Acute Category: Medical Code(s): R55 - Syncope and collapse (4) Hematoma of scalp: Status: Acute Category: Medical Code(s): S00.03XA - Contusion of scalp, initial encounter (5) CAD (coronary artery disease): Status: Acute Category: Medical Code(s): I25.10 - Atherosclerotic heart disease of [place] coronary artery without angina pectoris Plan For permanent pacer today. Additional documentation: Nathen Montes is a 77-year-old male with a medical history significant for frequent PVCs who presented to the ED from home after syncope, diaphoresis, and not feeling well. Patient states he was doing well this morning, but while doing laundry around 920 this morning he passed out. He woke up feeling really ill, diaphoretic, nauseous. He was then brought to the hospital via EMS. Workup in the ED significant for EKG showing third-degree heart block, heart rate in 39, with patient diaphoretic, lethargic. Since patient takes bisoprolol at home, patient was given glucagon 1 mg, 0.5 mg atropine, and rectal aspirin. He was started on dopamine drip without significant improvement. Transcutaneous pacing was then started. Ultrasonic Solderer was activated, with head CT was obtained due to hematoma on scalp to rule out intracranial bleed. CT head was negative. S/p PCI with 2 stents in LAD, OM and transvenous pacing right IJ. Patient reportedly became asystolic during PCI and CPR was performed and ROSC was achieved within 1 minute. Case was discussed with ED provider and decision was made to admit patient for third-degree heart block requiring transvenous pacing, CAD s/p 2 stents. #Syncope #Third-degree heart block #CAD s/p PCI with 2 stents 12/04/2023 #History of PVCs ? Initial EKG revealed third-degree heart block with nonspecific ST wave changes. Unclear if this is ischemic, home bisoprolol related, versus other. - S/p PCI with 2 stents in LAD, OM and transvenous pacing right IJ. ? VVI set for transvenous pacing at 70 bpm. ? Aspirin 81 mg, Plavix 75 mg, atorvastatin 40 mg. ? Avoid beta-blockers, including home bisoprolol. ? Follow-up morning TSH, A1c, lipid panel. ? Follow-up ECHO. ? Dr. Arreola plans to place permanent pacemaker tomorrow morning. N.p.o. at midnight ? Cardiology consulted, pending further recommendations. Lovenox 40 mg Full code
--- NOTE | 2023-12-05 09:22 | P.CONCA_ITS ---
History of Present Illness History of Present Illness Consult date: 12/05/23 Requesting physician: Stephane Levine Chief complaint: syncope, diaphoresis Additional Medical History:: 1. History of PVCs 2. Abnormal EKG with history of right bundle branch block and left anterior fascicular block A. Lexiscan Myoview, 04/2022, likely normal with no ischemia or wall motion abnormality.. B. Echocardiogram, 04/2022, EF 55-60% with diastolic dysfunction, grade 2. C. Syncopal episode, 12/04/2023, felt secondary to third-degree AV block with placement of temporary pacemaker, 12/04/2023 3. Hyperlipidemia 4. Ex-smoker who works for [employer] 5. Coronary artery disease A. [place] to mid LAD, large second OM, 12/04/2023, EF 65% with LVEDP 10 mmHg. History of present illness: Nathen Montes is a 77-year-old male with a medical history significant for frequent PVCs who presented to the ED from home after syncope, diaphoresis, and not feeling well. Patient states he was doing well this morning, but while doing laundry around 920 this morning he passed out. He woke up feeling really ill, diaphoretic, nauseous. He was then brought to the hospital via EMS. Workup in the ED significant for EKG showing third-degree heart block, heart rate in 39, with patient diaphoretic, lethargic. Since patient takes bisoprolol at home, patient was given glucagon 1 mg, 0.5 mg atropine, and rectal aspirin. He was started on dopamine drip without significant improvement. Transcutaneous pacing was then started. Registered Public Health Nurse was activated, with head CT was obtained due to hematoma on scalp to rule out intracranial bleed. CT head was negative. S/p PCI with 2 stents in LAD, OM and transvenous right IJ. Case was discussed with ED provider and decision was made to admit patient for third-degree heart block requiring transvenous pacing, CAD s/p [address] Arreola plans to place permanent pacemaker tomorrow morning. The above per Dr. Levine. The above events confirmed with the patient. Patient is seen in the company of his and son. He is feeling better today. Questions regarding placement of permanent pacemaker answered and patient agrees to proceed. Preliminary echocardiogram today shows ejection fraction greater than 55% Telemetry shows intermittent pacing with capture. [facility] Disclaimer: The information contained in this section may have been updated after the patient was seen, as this information can be updated by other users. Medical History Right arm numbness Encounter for pre-operative cardiovascular clearance Abnormal electrocardiogram [ECG] [EKG] Surgical History History of appendectomy Family History Other No significant family history Social History (Updated 12/04/23 @ 12:54 by Brenda Negron RN) Smoking Status: Never smoker alcohol intake: current current occupational status: retired Travel in the last 8 weeks: None Review of Systems Review of Systems Review of systems:: pertinent systems reviewed and negative unless documented below Constitutional Constitutional: Reports as per HPI *Cardiovascular Cardiovascular: Denies chest pain and Denies dyspnea *Respiratory Respiratory: Denies dyspnea *Neurologic Neurologic: Reports as per HPI Exam Data for Last 24 hours Vital signs and Labs for Last 24 Hours: Temp Pulse Resp BP Pulse Ox O2 Del Method O2 Flow Rate 97.7 F 77 17 124/80 97 Room Air 5 12/05/23 08:00 12/05/23 09:00 12/05/23 09:00 12/05/23 09:00 12/05/23 09:00 12/05/23 09:00 12/04/23 11:12 Laboratory Results - last 24 hr 12/04/23 10:00: WBC 11.5 H, RBC 4.73, Hgb 15.4, Hct 44.3, MCV 93.7, MCH 32.6 H, MCHC 34.8, RDW 13.7, Plt Count 155, MPV 10.8 H, Neut % (Auto) 41.4, Lymph % (Auto) 45.8, Pope % (Auto) 7.9, Eos % (Auto) 3.8, Baso % (Auto) 1.1, Neut # (Auto) 4.8, Lymph # (Auto) 5.3 H, Pope # (Auto) 0.9, Eos # (Auto) 0.4, Baso # (Auto) 0.1, VBG pH 7.49 H, VBG pCO2 29.8 L, VBG pO2 71.7 H, VBG HCO3 22.1 L, VBG Total CO2 23.1, VBG O2 Saturation 95.5 H, VBG Base Excess -1.2, VBG Lactic Acid 3.8 H, Sodium 137, Potassium 3.4 L, Chloride 103, Carbon Dioxide 23, Anion Gap 14.4, BUN 22 H, Creatinine 0.80, Estimated Creat Clear 66, Estimated GFR 93, Est GFR ( Amer) 113, Glucose 206 H, Calcium 9.7, Troponin I < 0.01, HIV 1&2 Antibody Rapid Nonreactive 12/04/23 10:39: Activated Clotting Time 240 H* 12/04/23 11:10: Activated Clotting Time 267 H* 12/04/23 14:45: Lactate 1.3 12/05/23 05:31: WBC 8.4 D, RBC 4.40 L, Hgb 14.3, Hct 40.3 L, MCV 91.8, MCH 32.4 H, MCHC 35.4, RDW 13.7, Plt Count 111 L D, MPV 9.9, Neut % (Auto) 68.7, Lymph % (Auto) 21.2, Pope % (Auto) 7.3, Eos % (Auto) 2.2, Baso % (Auto) 0.6, Neut # (Auto) 5.8, Lymph # (Auto) 1.8, Pope # (Auto) 0.6, Eos # (Auto) 0.2, Baso # (Auto) 0.1, Sodium 136, Potassium 3.6, Chloride 104, Carbon Dioxide 27, Anion Gap 8.6, BUN 12 D, Creatinine 0.70, Estimated Creat Clear 66, Estimated GFR 109, Est GFR ( Amer) 132, Glucose 107 H D, Hemoglobin A1c 5.3, Calcium 8.6, Magnesium 2.1, Total Bilirubin 0.7, AST 34, ALT 21, Alkaline Phosphatase 55, Total Protein 6.4, Albumin 3.9, Globulin 2.5, Albumin/Globulin Ratio 1.6, Triglycerides 87, Cholesterol 181, LDL Cholesterol Direct 95.57 L, VLDL Cholesterol 17, HDL Cholesterol 65 H, Cholesterol/HDL Ratio 2.8, TSH 0.15 L I & O for Last 24 hours: Intake & Output 10/04/12/03/23 12/04/23 12/05/23 11:59 11:59 11:59 11:59 Intake Total 440 / 440 Output Total 1450 / 1450 Balance -1010 / -1010 Weight 170 lb 170 lb 1.386 oz Constitutional Constitutional: no acute distress *Routine Respiratory Exam Respiratory: Present CTA bilaterally *Routine Cardiovascular Exam Cardiovascular: Present RRR; Absent murmur, gallop or rubs *Routine Neurological Exam Neurological: Present alert, oriented X3 and CN II-XII intact Meds Home Medications and Allergies Home Medications ?Medication ?Instructions ?Recorded ?Confirmed ?Type bisoprolol fumarate 5 mg tablet 5 mg PO DAILY #90 tabs 01/05/23 12/04/23 Rx fluorometholone 0.1 % eye 1 drp Eye-Right DAILY 12/04/23 12/04/23 History drops,suspension New Prescriptions to Start Prescriptions: Allergies Allergy/AdvReac Type Severity Reaction Status Date / Time No Known Allergies Allergy Verified 01/05/23 08:29 Assessment and Plan *Assessment and plan (1) Syncope: Status: Acute Qualifiers: Syncope type: unspecified Qualified Code(s): R55 - Syncope and collapse Category: Medical Code(s): R55 - Syncope and collapse (2) Third degree heart block: Status: Acute Category: Medical Code(s): I44.2 - Atrioventricular block, complete (3) Hematoma of scalp: Status: Acute Qualifiers: Encounter type: initial encounter Qualified Code(s): S00.03XA - Contusion of scalp, initial encounter Category: Medical Code(s): S00.03XA - Contusion of scalp, initial encounter (4) CAD (coronary artery disease): Status: Acute Qualifiers: Associated angina: unspecified whether angina present Coronary Disease- Associated Artery/Lesion type: [place] artery [place] vs. transplanted heart: [place] heart Qualified Code(s): I25.10 - Atherosclerotic heart disease of [place] coronary artery without angina pectoris Category: Medical Code(s): I25.10 - Atherosclerotic heart disease of [place] coronary artery without angina pectoris (5) Stented coronary artery: Status: Acute Category: Surgical Code(s): Z95.5 - Presence of coronary angioplasty implant and graft (6) Abnormal electrocardiogram [ECG] [EKG]: Status: Acute Category: Medical Code(s): R94.31 - Abnormal electrocardiogram [ECG] [EKG] Plan 1. Syncope with third-degree AV block -Status post temporary pacemaker placement, 12/04/2023 with plans for permanent pacemaker placement today 2. Coronary artery disease -Status post drug-eluting stent placement to LAD and obtuse marginal, 12/04/2023 -DAPT with aspirin and Plavix 3. Dyslipidemia -LDL 95 with HDL 65 on 12/05/2023 -Statin therapy started 4. Low TSH at 0.15/hyperthyroidism -Defer to PCP Permanent pacemaker placement today Plan to observe overnight and consider discharge tomorrow
[2023-12-05] MEDS: CEFAZOLIN SODIUM 1 GM in 0.9 % SODIUM CHLORIDE 50 ML IV (09:51)
[2023-12-05] MEDS: LIDOCAINE 1% W/EPI 1:100,000 20ML VIAL 20 ML SQ (09:54)
[2023-12-05] MEDS: MIDAZOLAM HCL 1MG/1ML 5ML VIAL 1 MG IV (10:28)
[2023-12-05] MEDS: FENTANYL 100MCG/2ML VIAL 25 MCG IV (10:28)
[2023-12-05] MEDS: CEFAZOLIN 1GM VIAL 1 GM TP (10:29)
[2023-12-05] MEDS: PROPOFOL 10MG/ML 20ML VIAL 230 MG IV (10:33)
--- NOTE | 2023-12-05 10:33 | XR_ITS ---
FINAL REPORT CLINICAL HISTORY: PPM insertion COMPARISON: None FINDINGS: A single portable view of the chest was obtained. A left subclavian pacer is present. The heart size and pulmonary vascularity are within normal limits. The mediastinum is within normal limits. No acute pulmonary abnormality is identified. The bony thorax is intact. IMPRESSION: No active cardiopulmonary disease. Left subclavian pacer without pneumothorax. Reviewed, Interpreted and Dictated by Usama Barton III, MD Transcribed by Caroline Pendleton Authenticated and [facility]
[2023-12-05] MEDS: ASPIRIN EC 81MG TABLET 81 MG PO (11:00)
[2023-12-05] MEDS: CLOPIDOGREL 75MG TAB 75 MG PO (11:00)
--- NOTE | 2023-12-05 15:09 | PC.NURSE ---
Pt is alert and oriented x4. He's been bbb/paced on telemetry. Small amount of blood noted to dressing on right neck from IJ being removed. Bruising noted around pacer site. He's ambulated to the bathroom with assist x1 and tolerated well. He denies any pain. No questions or complaints at this time.
--- NOTE | 2023-12-05 17:43 | CA_ITS ---
APPROVED REPORT EXAM: Comprehensive 2D, Doppler, and color-flow Echocardiogram [place] [employer]: Dana Jackson RT(R) Ht: 5 ft 11 in Wt: 170lbs BSA: 1.97 BP: 127/70 mmHg Indications: third degree block, syncope, 2 cardiac stents 12/04/23, temporary paceer in place, unable to roll or move secondary to this, permanent pacer today. 2D Dimensions LA Volume 38.60 mL LA Volume Index 19.59 mL/m2 (M/F) 16-34 EF AP4 55.50 % GL Strain -10.6 % M-Mode Dimensions RVDd 2.00 cm (0.9-2.6) LA Diam 2.91 cm (1.9-4.0) LVDd 5.19 cm (3.5-5.7) LVDs 3.50 cm (3.5-5.7) IVSd 0.82 cm (0.6-1.1) PWd 1.14 cm (0.6-1.1) EF (Teich) 60.50% FS 32.60% EDV (Teich) 128.90 mL TAPSE 1.79 (<1.7) ESV (Teich) 50.90 mL LV Diastology E Decel Time 193 (160-240 msec) E/A Ratio 0.9 Mitral Valve MV E Max Herbie. 90.0 (40-130 cm/s) MV A Velocity 104.0 (40-130 cm/s) E/A Ratio 0.86 MV PHT 57.0 ms Left Ventricle The left ventricle is normal size. The left ventricular systolic function is normal. The left ventricular ejection fraction is within the normal range. There is increased wall thickness. There is normal LV segmental wall motion. Diastolic function is indeterminate. LVEF is 55%. Right Ventricle The right ventricle is mildly dilated. The right ventricular systolic function is normal. Atria Left atrium is mildly dilated. The right atrium size is normal. There is no Doppler evidence of interatrial shunt. Aortic Valve The aortic valve is mildly thickened. There is no aortic valvular stenosis. There is no Doppler evidence of interatrial shunt. Mitral Valve The mitral valve leaflets are mildly thickened. No evidence of mitral valve stenosis. Mild mitral regurgitation. Tricuspid Valve The tricuspid valve leaflets are thin and pliable. Trace tricuspid regurgitation. There is insufficient TR jet to estimate RVSP. Pulmonic Valve The pulmonary valve is normal in structure. Trace pulmonic regurgitation. Great Vessels The aortic root is normal in size. The ascending aorta is not well-visualized. IVC is normal in size and collapses >50% with inspiration. Pericardium There is no pericardial effusion. Other Information Study Quality: Fair Conclusion Normal biventricular systolic function. Mild RV dilation. Mild LA dilation. Mild MR. Electronically signed by : Meenakshi Kenny MD 12/05/2023 12:09:25
--- NOTE | 2023-12-05 17:59 | EXP.ACUTE.PN ---
Subjective *Date: 12/05/23 *Time: 17:59 Interval history: Dr. Arreola states that patient can be discharged to home this evening. Aspirin, Plavix, Bisoprolol. Medical Exam Vital signs and Labs for Last 24 Hours: Vital Signs Temp Pulse Pulse Resp BP Pulse Ox O2 Del Method 12/05/23 17:00 Room Air 12/05/23 16:45 88 18 135/88 98 Room Air 12/05/23 16:00 80 12/05/23 16:00 99.0 F 12/05/23 15:45 88 16 146/89 H 96 Room Air 12/05/23 14:47 Room Air 12/05/23 14:45 82 16 126/52 L 96 Room Air 12/05/23 13:45 83 16 130/73 98 Room Air 12/05/23 13:15 86 18 119/70 96 Room Air 12/05/23 12:53 Room Air 12/05/23 12:45 79 18 160/81 H 96 Room Air 12/05/23 12:15 79 16 163/91 H 98 Room Air 12/05/23 12:00 80 12/05/23 11:45 74 18 136/77 98 Room Air 12/05/23 11:30 77 16 159/84 H 99 Room Air 12/05/23 11:15 77 14 136/82 95 Room Air 12/05/23 11:00 97.9 F 78 14 118/67 96 Room Air 12/05/23 10:53 Room Air 12/05/23 09:00 77 17 124/80 97 Room Air 12/05/23 09:00 Room Air 12/05/23 08:00 80 12/05/23 08:00 78 14 125/68 96 Room Air 12/05/23 08:00 97.7 F 12/05/23 07:00 70 16 124/72 94 L Room Air 12/05/23 06:00 70 15 90/67 L 95 Room Air 12/05/23 05:00 70 14 130/70 95 Room Air 12/05/23 04:00 98.4 F 70 20 120/69 95 Room Air 12/05/23 03:00 70 12 96/56 L 96 Room Air 12/05/23 02:00 70 12 98/57 L 96 Room Air 12/05/23 01:00 70 15 116/66 95 Room Air 12/05/23 00:00 70 12/05/23 00:00 70 12/05/23 00:00 98.5 F 70 15 108/62 L 95 Room Air 12/04/23 23:00 70 20 126/66 96 Room Air 12/04/23 22:00 70 14 110/67 95 Room Air 12/04/23 21:00 66 14 128/69 95 Room Air 12/04/23 20:00 70 12/04/23 20:00 70 12/04/23 20:00 98.3 F 70 12 114/76 96 Room Air 12/04/23 18:53 Room Air 12/04/23 18:15 84 20 95/75 L 96 Room Air Intake and Output 12/05/23 12/05/23 12/05/23 03:59 11:59 19:59 Intake Total 200 / 440 0 / 440 240 / 240 Output Total 600 / 1450 600 / 1450 0 / 0 Balance -400 / -1010 -600 / -1010 240 / 240 Intake: Intake, Oral Amount 200 / 440 0 / 440 240 / 240 Intake, Total IV Amount 0 / 0 Dopamine HCl/D5w 250 ml @ 3 MCG 0 / 0 /KG/MIN 8.675 mls/hr IV .Q24H [facility] Rx#:[id number] Output: Output, Urine Amount 600 / 1450 600 / 1450 0 / 0 Other: Number of Voids 1 1 Number of Unmeasured Voids 1 Weight 170 lb 1.386 oz Laboratory Results - last 24 hr 12/05/23 05:31: WBC 8.4 D, RBC 4.40 L, Hgb 14.3, Hct 40.3 L, MCV 91.8, MCH 32.4 H, MCHC 35.4, RDW 13.7, Plt Count 111 L D, MPV 9.9, Neut % (Auto) 68.7, Lymph % (Auto) 21.2, Dare % (Auto) 7.3, Eos % (Auto) 2.2, Baso % (Auto) 0.6, Neut # (Auto) 5.8, Lymph # (Auto) 1.8, Dare # (Auto) 0.6, Eos # (Auto) 0.2, Baso # (Auto) 0.1, Sodium 136, Potassium 3.6, Chloride 104, Carbon Dioxide 27, Anion Gap 8.6, BUN 12 D, Creatinine 0.70, Estimated Creat Clear 66, Estimated GFR 109, Est GFR ( Amer) 132, Glucose 107 H D, Hemoglobin A1c 5.3, Calcium 8.6, Magnesium 2.1, Total Bilirubin 0.7, AST 34, ALT 21, Alkaline Phosphatase 55, Total Protein 6.4, Albumin 3.9, Globulin 2.5, Albumin/Globulin Ratio 1.6, Triglycerides 87, Cholesterol 181, LDL Cholesterol Direct 95.57 L, VLDL Cholesterol 17, HDL Cholesterol 65 H, Cholesterol/HDL Ratio 2.8, TSH 0.15 L I & O for Labs for Last 24 Hours: Intake & Output 12/03/23 12/04/23 12/05/23 12/06/23 11:59 11:59 11:59 11:59 Intake Total 440 / 440 240 / 240 Output Total 1450 / 1450 0 / 0 Balance -1010 / -1010 240 / 240 Weight 170 lb 170 lb 1.386 oz Assessment and Plan *Assessment and plan (1) Stented coronary artery: Status: Acute Category: Surgical Code(s): Z95.5 - Presence of coronary angioplasty implant and graft (2) CAD (coronary artery disease): Status: Acute Qualifiers: Coronary Disease-Associated Artery/Lesion type: [place] artery [place] vs. transplanted heart: [place] heart Associated angina: unspecified whether angina present Qualified Code(s): I25.10 - Atherosclerotic heart disease of [place] coronary artery without angina pectoris Category: Medical Code(s): I25.10 - Atherosclerotic heart disease of [place] coronary artery without angina pectoris (3) Hematoma of scalp: Status: Acute Qualifiers: Encounter type: initial encounter Qualified Code(s): S00.03XA - Contusion of scalp, initial encounter Category: Medical Code(s): S00.03XA - Contusion of scalp, initial encounter (4) Syncope: Status: Acute Qualifiers: Syncope type: unspecified Qualified Code(s): R55 - Syncope and collapse Category: Medical Code(s): R55 - Syncope and collapse (5) Third degree heart block: Status: Acute Category: Medical Code(s): I44.2 - Atrioventricular block, complete (6) Diastolic dysfunction: Status: Acute Category: Medical Code(s): I51.89 - Other ill-defined heart diseases
[2023-12-06 05:15] LABS: HCV Ab Non Reactive (Non Reactive)
--- NOTE | 2023-12-06 15:13 | CARE MANAGER ---
Patient's called back. States the patient is sore, but doing better. Denies questions or concerns at this time. Has medications and is aware of follow up appointments. CHAPARRITA Lopez
--- NOTE | 2023-12-08 07:27 | P.DS_ITS ---
General Admission date:: 12/04/23 Discharge date: 12/05/23 HPI HPI HPI: Nathen Montes is a 77-year-old male with a medical history significant for frequent PVCs who presented to the ED from home after syncope, diaphoresis, and not feeling well. Patient states he was doing well this morning, but while doing laundry around 920 this morning he passed out. He woke up feeling really ill, diaphoretic, nauseous. He was then brought to the hospital via EMS. Workup in the ED significant for EKG showing third-degree heart block, heart rate in 39, with patient diaphoretic, lethargic. Since patient takes bisoprolol at home, patient was given glucagon 1 mg, 0.5 mg atropine, and rectal aspirin. He was started on dopamine drip without significant improvement. Transcutaneous pacing was then started. Crusher was activated, with head CT was obtained due to hematoma on scalp to rule out intracranial bleed. CT head was negative. S/p PCI with 2 stents in LAD, OM and transvenous right IJ. Case was discussed with ED provider and decision was made to admit patient for third-degree heart block requiring transvenous pacing, CAD s/p [address] Arreola plans to place permanent pacemaker tomorrow morning. Hospital Course Hospital Course Hospital Course: On arrival to the [facility] emergency room patient with found to be in third-degree heart block with some nonspecific ST-T wave changes. He was taken directly to the Crusher where he received 2 stents in his LAD, OM and transvenous pacing was initiated. Plans at this time were for the patient to have a permanent pacemaker inserted the next morning. The patient did well overnight and had no chest pain or shortness of breath. On 12/05/2023 patient did have a permanent dual-chamber pacemaker placed per Dr. Arreola. After the procedure he felt fine. He was stable and anxious to return to home and he was discharged.. Follow-up with Dr. Hurt as well as with cardiology. See discharge instructions for listed medications and discharge plan of care. Exam Data for Last 24 hours Vital signs and Labs for Last 24 Hours: Temp Pulse Resp BP Pulse Ox O2 Del Method O2 Flow Rate 99.0 F 86 16 144/80 H 98 Room Air 5 12/05/23 16:00 12/05/23 17:45 12/05/23 17:45 12/05/23 17:45 12/05/23 17:45 12/05/23 17:45 12/04/23 11:12 I & O for Last 24 hours: Intake & Output 12/05/23 12/06/23 12/07/23 12/08/23 11:59 11:59 11:59 11:59 Intake Total 440 / 440 240 / 240 Output Total 1450 / 1450 0 / 0 Balance -1010 / -1010 240 / 240 Weight 170 lb 1.386 oz Narrative: Constitutional: Present no acute distress Comment:: rocha; appears comfortable lying in bed with family at bedside. Respiratory: Present CTA bilaterally (Anterior and posteriorly) Cardiac: Present Reg Rate and Rhythm (Some paced beats) and pedal pulses present GI: Present soft and normal bowel sounds; Absent distention, tenderness or guarding Extremities: Present normal inspection and full ROM; Absent tenderness, edema or calf tenderness Neuro: Present alert, awake and oriented x 3 Results Data Completed and Pending Completed studies during hospitalization [Text1]: EKG 12/04/2023 Conclusion third degree heart block ST DEPRESSION, CONSIDER SUBENDOCARDIAL INJURY [0.1+ mV ST DEPRESSION] CRITICAL TEST RESULT Cardiac cath 12/04/2023 MPRESSION Third-degree AV block of unknown etiology possibly multifactorial from combination of beta-blockers and possibly ischemic produced Successful stenting of the mid LAD severe disease reduced to 0% with 1 drug-eluting stent Successful stenting of the large second obtuse marginal artery severe disease reduced to 0% with 1 drug-eluting stent Successful placement of temporary transvenous pacemaker from the right internal jugular vein with implantation within the right ventricle along the high septal side Normal ejection fraction Normal LVEDP PLAN 1. Plavix and aspirin 2. Maintain VVI pacemaker at 70 overnight with plans to proceed with permanent pacemaker placement tomorrow 3. LDL less than 55 to be 2 that high intensity statin 4. Keep transcutaneous pacemaker in place in the event the transvenous pacer comes dislodged 5. Echocardiogram in the morning 6. N.p.o. after midnight for anticipated pacemaker placement in the morning 7. Patient has a low LVEDP with normal ejection fraction and should be able to tolerate IV fluids in the event of hypotension 12/05/2023 Permanent pacer-dual chamber placement IMPRESSION 1. Successful pocket formation for Permanent Pacemaker Placement. 2. Successful placement of an atrial sensing and pacing coil into the right atrial appendage. 3. Successful placement of a ventricular sensing and pacing coil in the right ventricular apex. 4. Successful permanent Pacemaker Placement. PLAN 1. Post op wound care, follow up office visit ECHO 12/05/2023 Conclusion Normal biventricular systolic function. Mild RV dilation. Mild LA dilation. Mild MR. 12/05/2023 CXR IMPRESSION: No active cardiopulmonary disease. Left subclavian pacer without pneumothorax. 12/04/[address] FINDINGS: Brain: Patchy hypoattenuation in the periventricular and subcortical white matter, consistent with chronic small vessel ischemia. No CT evidence of acute ischemia. No acute hemorrhage. No mass effect or midline shift. Cerebral ventricles: No ventriculomegaly. Paranasal sinuses: Visualized sinuses are unremarkable. No fluid levels. Mastoid air cells: Visualized mastoid air cells are well aerated. Orbital cavities: Bilateral lens extractions. Bones: Unremarkable. No acute fracture. Soft tissues: Unremarkable. IMPRESSION: No acute intracranial abnormality. Labs on day of discharge: 12/04/23 10:00: WBC 11.5 H, RBC 4.73, Hgb 15.4, Hct 44.3, MCV 93.7, MCH 32.6 H, MCHC 34.8, RDW 13.7, Plt Count 155, MPV 10.8 H, Neut % (Auto) 41.4, Lymph % (Auto) 45.8, Ford % (Auto) 7.9, Eos % (Auto) 3.8, Baso % (Auto) 1.1, Neut # (Auto) 4.8, Lymph # (Auto) 5.3 H, Ford # (Auto) 0.9, Eos # (Auto) 0.4, Baso # (Auto) 0.1, VBG pH 7.49 H, VBG pCO2 29.8 L, VBG pO2 71.7 H, VBG HCO3 22.1 L, VBG Total CO2 23.1, VBG O2 Saturation 95.5 H, VBG Base Excess -1.2, VBG Lactic Acid 3.8 H, Sodium 137, Potassium 3.4 L, Chloride 103, Carbon Dioxide 23, Anion Gap 14.4, BUN 22 H, Creatinine 0.80, Estimated Creat Clear 66, Estimated GFR 93, Est GFR ( Amer) 113, Glucose 206 H, Calcium 9.7, Troponin I < 0.01, HIV 1&2 Antibody Rapid Nonreactive 12/04/23 10:39: Activated Clotting Time 240 H* 12/04/23 11:10: Activated Clotting Time 267 H* 12/04/23 14:45: Lactate 1.3 12/05/23 05:31: WBC 8.4 D, RBC 4.40 L, Hgb 14.3, Hct 40.3 L, MCV 91.8, MCH 32.4 H, MCHC 35.4, RDW 13.7, Plt Count 111 L D, MPV 9.9, Neut % (Auto) 68.7, Lymph % (Auto) 21.2, Ford % (Auto) 7.3, Eos % (Auto) 2.2, Baso % (Auto) 0.6, Neut # (Auto) 5.8, Lymph # (Auto) 1.8, Ford # (Auto) 0.6, Eos # (Auto) 0.2, Baso # (Auto) 0.1, Sodium 136, Potassium 3.6, Chloride 104, Carbon Dioxide 27, Anion Gap 8.6, BUN 12 D, Creatinine 0.70, Estimated Creat Clear 66, Estimated GFR 109, Est GFR ( Amer) 132, Glucose 107 H D, Hemoglobin A1c 5.3, Calcium 8.6, Magnesium 2.1, Total Bilirubin 0.7, AST 34, ALT 21, Alkaline Phosphatase 55, Total Protein 6.4, Albumin 3.9, Globulin 2.5, Albumin/Globulin Ratio 1.6, Triglycerides 87, Cholesterol 181, LDL Cholesterol Direct 95.57 L, VLDL Cholesterol 17, HDL Cholesterol 65 H, Cholesterol/HDL Ratio 2.8, TSH 0.15 L DS: Diagnosis Discharge Diagnosis (1) Stented coronary artery: Status: Acute Code(s): Z95.5 - Presence of coronary angioplasty implant and graft (2) CAD (coronary artery disease): Status: Acute Code(s): I25.10 - Atherosclerotic heart disease of [place] coronary artery without angina pectoris Qualifiers: Associated angina: unspecified whether angina present Coronary Disease- Associated Artery/Lesion type: [place] artery [place] vs. transplanted heart: [place] heart Qualified Code(s): I25.10 - Atherosclerotic heart disease of [place] coronary artery without angina pectoris (3) Hematoma of scalp: Status: Acute Code(s): S00.03XA - Contusion of scalp, initial encounter Qualifiers: Encounter type: initial encounter Qualified Code(s): S00.03XA - Contusion of scalp, initial encounter (4) Syncope: Status: Acute Code(s): R55 - Syncope and collapse Qualifiers: Syncope type: unspecified Qualified Code(s): R55 - Syncope and collapse (5) Third degree heart block: Status: Acute Code(s): I44.2 - Atrioventricular block, complete (6) Diastolic dysfunction: Status: Acute Code(s): I51.89 - Other ill-defined heart diseases (7) Pacemaker: Status: Acute Code(s): Z95.0 - Presence of cardiac pacemaker Meds Home Medications and Allergies Home Medications ?Medication ?Instructions ?Recorded ?Confirmed ?Type bisoprolol fumarate 5 mg tablet 5 mg PO DAILY #90 tabs 01/05/23 12/04/23 Rx fluorometholone 0.1 % eye 1 drp Eye-Right DAILY 12/04/23 12/04/23 History drops,suspension aspirin 81 mg tablet,delayed 81 mg PO DAILY #100 tabs 12/05/23 Rx release atorvastatin 40 mg tablet 40 mg PO HS #30 tabs 12/05/23 Rx clopidogrel 75 mg tablet 75 mg PO DAILY #30 tabs 12/05/23 Rx New Prescriptions to Start Prescriptions: aspirin Kailash Mathis atorvastatin Kailash Mathis clopidogrel Kailash Mathis Allergies Allergy/AdvReac Type Severity Reaction Status Date / Time No Known Allergies Allergy Verified 12/06/23 12:28 Discharge Plan Disposition Patient Disposition: Home, Self-Care Discharge Order Discharge Orders: Discharge Order (Routine); Ordered 12/05/23 Ordered By: Kailash Mathis Follow up Plan Follow up with: Jarett Hurt MD [Primary Care Provider] - Enter time for follow up (call tomorrow for appt.) Prescriptions/Medication Reconciliation: New aspirin 81 mg Tablet,Delayed Release (Dr/Ec) 81 mg PO DAILY Qty: 100 0RF atorvastatin 40 mg Tablet 40 mg PO HS Qty: 30 4RF clopidogrel 75 mg Tablet 75 mg PO DAILY Qty: 30 4RF Continued bisoprolol fumarate 5 mg tablet 5 mg PO DAILY Qty: 90 3RF fluorometholone 0.1 % drops,suspension 1 drp Eye-Right DAILY Problem Reconciliation Problems Reviewed?: Yes Patient Discharge Instructions ACTIVITY: Limited activity and No heavy lifting DIET: advance to your usual diet Patient Instructions: Cardiac Catheterization, DI for Heart Block, DI for Pacemaker Insertion, DI for Surgical Site Infection Print Language: Gabonese Providers Primary Care Provider: Jarett Hurt Admit Provider: Kailash Mathis Attending Provider: Stephane Levine
== END 2023-12-05 18:22 | disposition home or self-care (01) | DRG 244 ==
LOC: ER 10:13 → CATHLAB 10:39 → 2ND 11:49
PROVIDERS: Internal Medicine; Admitting Provider Family Medicine; Emergency Provider Emergency Medicine; PCP Family Medicine; Visit Provider Student in an Organized Health Care Education/Training Program
PROC: 027135Z Dilation of Coronary Artery, Two Arteries with Two Drug-eluting Intraluminal Devices, Percutaneous Approach (ICD-10-PCS; principal; 2023-12-04 10:30)
PROC: 0JH606Z Insertion of Pacemaker, Dual Chamber into Chest Subcutaneous Tissue and Fascia, Open Approach (ICD-10-PCS; principal; 2023-12-05 14:00)
DX: I44.2 Atrioventricular block, complete; R55 Syncope and collapse; Z95.5 Presence of coronary angioplasty implant and graft; S00.03XA Contusion of scalp, initial encounter; I25.10 Atherosclerotic heart disease of native coronary artery without angina pectoris; R94.31 Abnormal electrocardiogram [ECG] [EKG]; Z87.891 Personal history of nicotine dependence; E78.5 Hyperlipidemia, unspecified; Z79.899 Other long term (current) drug therapy
CPT/HCPCS: 33208; 33210; 36415; 70450; 71045; 80048; 80053; 80061; 82803; 83036; 83605; 83735; 84443; 84484; 85025; 85347; 86803; 87389; 92928; 93005; 93306; 93458; 99152; 99153; 99291; C1725; C1769; C1785; C1874; C1894; C1898; C9600; J0461; J1200; J1265; J1611; J1644; J2250; J2270; J2405; J3010; Q9967

== ENCOUNTER 2023-12-21 09:51 | Outpatient (RCR) | payer MEDICARE, BC, SELFPAY | END 2024-03-23 11:00 | disposition home or self-care (01) | LOC: CR 09:51 | PROVIDERS: Visit Provider Internal Medicine | DX: Z95.5 Presence of coronary angioplasty implant and graft (principal) | CPT/HCPCS: 93798 ==

== ENCOUNTER 2024-05-28 12:03 | Outpatient (CLI) | payer MEDICARE, BC, SELFPAY ==
--- NOTE | 2024-05-28 12:11 | XR_ITS ---
FINAL REPORT CLINICAL HISTORY: PAIN IN RT FOOT COMPARISON: None FINDINGS: RIGHT FOOT Three views show no evidence of acute displaced fracture or dislocation of the visualized bony architecture. There is mild degenerative joint disease present in the foot. There is flattening of the second metatarsal head, that may represent an old fracture or avascular necrosis. The degenerative change is most pronounced involving the first and second MTP joints. IMPRESSION: Degenerative change most pronounced in the first and second MTP joints. Flattening of the second metatarsal head, that may represent an old fracture or avascular necrosis. Reviewed, Interpreted and Dictated by Kailash Ryder MD Transcribed by Lulu Olivia Authenticated and [facility]
== END 2024-05-28 23:59 | disposition home or self-care (01) ==
LOC: RAD 12:05
PROVIDERS: PCP Family Medicine; Visit Provider Family Medicine
DX: M79.671 Pain in right foot (principal); M21.621 Bunionette of right foot
CPT/HCPCS: 73630

== ENCOUNTER 2024-07-05 10:47 | Outpatient (CLI) | payer MEDICARE, BC, SELFPAY ==
[2024-07-05 11:32] LABS: Basophils # 0.1 K/mm3 (0-0.2); Basophils % 0.8 % (0.1-2.0); Eosinophils # 0.2 Kmm3 (0.0-0.4); Eosinophils % 2.3 % (0.1-12.0); Hematocrit 42.5 % (42.0-52.0); Hemoglobin 14.8 g/dL (14.1-18.0); Immature Granulocytes # 0.01 10^3uL; Immature Granulocytes % 0.2 %; Lymphocytes # 1.7 K/mm3 (0.7-4.5); Lymphocytes % 26.6 % (10-50); Mean Corpuscular HGB Conc 34.8 g/dL (31.8-35.4); Mean Corpuscular Hemoglobin 31.6 pg (27.0-31.2); Mean Corpuscular Volume 90.6 fl (80-94); Monocytes # 0.7 K/mm3 (0.1-1.0); Neutrophils # 3.8 K/mm3 (1.8-7.8); Neutrophils % 59.1 % (37.0-80.0); Nucleated Red Blood Cells # 0 10^3/uL; Nucleated Red Blood Cells % 0 %; Platelet Count 137 K/mm3 (142-424); Red Blood Count 4.69 M/mm3 (4.60-6.20); Red Cell Distribution Width 12.8 % (11.5-17.5); Red Cell Distribution Width-SD 42.1 fL; White Blood Count 6.4 K/mm3 (4.8-10.8)
[2024-07-05 12:06] LABS: Alanine Aminotransferase 30 U/L (12-78); Albumin Level 4.8 g/dl (3.5-5.0); Alkaline Phosphatase 73 U/L (38-126); Anion Gap 7.3 mEq/L (5-15); Aspartate Amino Transferase 37 U/L (17-59); Bilirubin,Direct 0.1 mg/dl (0.0-0.4); Bilirubin,Indirect 0.7 mg/dL (0.0-0.9); Bilirubin,Total 0.8 mg/dl (0.2-1.3); Bilirubin,Unconjugated 0.7 mg/dL (0.0-1.1); Blood Urea Nitrogen 20 mg/dl (9-20); Calcium 9.8 mg/dl (8.4-10.2); Carbon Dioxide 26 mmol/L (22.0-30.0); Chloride 107 mmol/L (98-107); Cholesterol 119 mg/dl (140-200); Estimated Glomerular Filt Rate 93 ml/min (>60); GFR (African American) 113 ML/MIN (>60); Glucose 101 mg/dl (74-100); HDL Cholesterol 59 mg/dl (40-60); Magnesium 2.2 mg/dl (1.6-2.3); Potassium 4.3 mmoL/L (3.5-5.1); Sodium 136 mmol/L (136-145); Total Protein,Serum 6.9 g/dl (6.3-8.2); Triglycerides 60 mg/dl (30-150); VLDL Cholesterol 12 mg/dL (0-40)
[2024-07-05 12:17] LABS: Direct LDL Cholesterol 45.07 mg/dL (100-129)
[2024-07-05 12:21] LABS: Free T4 (Free Thyroxine) 1.14 ng/dl (0.78-2.19)
[2024-07-05 12:36] LABS: Thyroid Stimulating Hormone 1.55 uIU/mL (0.465-4.68)
== END 2024-07-05 23:59 | disposition home or self-care (01) ==
LOC: LAB 10:49
PROVIDERS: PCP Family Medicine; Visit Provider Physician Assistant
DX: I25.10 Atherosclerotic heart disease of native coronary artery without angina pectoris (principal); R53.83 Other fatigue; I11.9 Hypertensive heart disease without heart failure; Z95.0 Presence of cardiac pacemaker; Z95.5 Presence of coronary angioplasty implant and graft
CPT/HCPCS: 36415; 80048; 80061; 80076; 83735; 84439; 84443; 85025

== ENCOUNTER 2025-01-07 08:30 | Outpatient (CLI) | payer MEDICARE, BC, SELFPAY ==
--- OUTSIDE RECORDS SUMMARY | 2023-12-14 09:00 | XMS_ITS ---
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 Name Role Phone Jose Carlos Hurt Primary Care Provider Osmani Esposito Unavailable [phone] Allergies No Known Allergies REASON FOR VISIT follow up discharge [facility] Medications Medication SIG (Take, Route, Frequency, Duration) Notes Start Date End Date Status Atorvastatin Calcium 40 MG 1 tablet Oral ly Once a day Active Clopidogrel Bisulfate 75 MG 1 tablet Ora lly Once a day Active Cyclobenzaprine HCl 5 MG 1 tablet at bed time as needed Orally Three times a day 12/14/2023 Active Aspirin 81 MG 1 tablet Orally Once a day Active Fluorometholone 0.1 % 1 gtt in each affe cted eye once daily Active Bisoprolol Fumarate 5 MG 1 tablet Orally Once a day Active Problems Problem Type SNOMED Code ICD Code Onset Dates Problem Status W/U Status Risk Notes Problem Atherosclerotic heart disease of [place] coronary artery without angina pectoris ([id number]) Coronary artery disease involving [place] coronary artery of [place] heart without angina pectoris (I25.10) Active confirmed Problem Cardiac pacemaker in situ ([id number]) Cardiac pacemaker in situ (Z95.0) Active confirmed Vital Signs Blood pressure systolic 140 mm Hg 12/14/19 24 Blood pressure diastolic 80 mm Hg 024 Heart Rate 78 /min 12/14/2023 Height 67.50 in 12/14/2023 Weight 165.4 lbs 12/14/2023 BMI 25.52 kg/m2 12/14/2023 Encounters Encounter Location Date Provider Diagnosis [facility] [address] [facility] [address] [place] [id number] 12/14/2023 Osmani Esposito Coronary artery dise ase involving [place] coronary artery of [place] heart without angina pectoris I25.10 ; Symptomatic bradycardia R00.1 ; Cardiac pacemaker in situ Z95.0 and Neck muscle spasm M62.838 Assessments Encounter Date Diagnosis (ICD Code) Assessment Notes Treatment Notes Treatment Clinical Notes Section Notes 12/14/2023 Coronary artery disease involving [place] coronary artery of [place] heart without angina pectoris (ICD-10 - I25.10) [facility] hospital records reviewed in office today 12/14/2023 Symptomatic bradycardia (ICD-10 - R00.1) Resolved 12/14/2023 Cardiac pacemaker in situ (ICD-10 - Z95.0) 12/14/2023 Neck muscle spasm (ICD-10 - M62.838) Home exercise program provided to patient, heating pad to affected areas 2 to 3 times a day Plan Of Treatment Medication Medication Name Sig Start Date Stop Date Notes Atorvastatin Calcium 40 MG 1 tablet Orally Once a day Clopidogrel Bisulfate 75 MG 1 tablet Orally Once a day Cyclobenzaprine HCl 5 MG 1 tablet at bed time as needed Orally Three times a day 12/14/2023 Cyclobenzaprine HCl 10 MG 1 tablet Orall y Three times a day 08/19/2022 Aspirin 81 MG 1 tablet Orally Once a day Treatment Notes Assessment Notes Coronary artery disease invo lving [place] coronary artery of [place] heart without angina pectoris [facility] hospital records reviewed in office today Symptomatic bradycardia Resolved Neck muscle spasm Home exercise progra m provided to patient, heating pad to affected areas 2 to 3 times a day Next Appt Details Follow Up: prn, Reason: Progress Notes * Nathen SANTIAGOOB: [birth year] (79 yo M)Acc No.[id number]:12/14/2023 Progress Notes Patient: Nathen MENDOZA Provider: Gba Esposito M.D. :1945 A ge:77 Y S ex:Male Date:12/14/2023 Address:[address] [place], [id number] Pcp:Jose Carlos Hurt Subjective: * Chief Complaints: * 1 . follow up discharge [facility]. * HPI: H PI: 77 year old male presents with c/o Here for follow up on: 1 -08/2023 [facility] hospitalization, see pt docs. Pt had heart cath and 2 stents placed 12/03 and dual chamber pacemaker placed 12/05/2023, after symcope eposide on 12/03. Pt states he saw YANETH Lopez on Tuesday and was told that everything looks good and will have chio removed on .? N maranda: c/o pain P t had syncope episode 12/03 and states that he has had neck pain since then. Pt states pain started on rt side and has moved to the lt side. Pt states he cannot turn his head and it hurts to swallow at times as well. Pt has been taking Tylenol and using heat but has not had any relief. * ROS: D ERMATOLOGY: no R nick. n o H scout. G ASTROENTEROLOGY: no N ausea. n o V omiting. M USCULOSKELETAL: Positive for n maranda has been stiff since he passed out prior to hospital admission. U ROLOGY: no D ifficulty urinating. n o B lood in urine. * Medical History: S hingles, Prostate cancer, GERD, Zoster keratitis, Hypertension, Coronary Artery Disease, heart block, s/p pacemaker placement 2023. * Surgical History: P rostatatectomy 04/2005, LT Cataract 07/2010, Heart Cath, 2 Stents Placed 12/04/2023, Dual Chamber Pacemaker Placed, Dr. Arreola 12/05/2023. * Hospitalization/Major Diagno stic Procedure: S yncope- [facility] 12/03-08/2023. * Family History: F ather: . M other: , diagnosed with Stroke. 1 son(s) , 1 daughter(s) . . * Social History: C URRENT TOBACCO USE S moking Status: P atient does NOT smoke. C affeine: no. Home smoke detector use: yes. Marital Status: . Past smoking status: no. * Medications: T aking Clopidogrel Bisulfate 75 MG Tablet 1 tablet Orally Once a day , Taking Atorvastatin Calcium 40 MG Tablet 1 tablet Orally Once a day , Taking Aspirin 81 MG Tablet Chewable 1 tablet Orally Once a day , Taking Bisoprolol Fumarate 5 MG Tablet 1 tablet Orally Once a day , Taking Fluorometholone 0.1 % Suspension 1 gtt in each affected eye once daily , Not-Taking Cyclobenzaprine HCl 10 MG Tablet 1 tablet Orally Three times a day , Medication List reviewed and reconciled with the patient * Allergies: N .K.D.A. Objective: * Vitals: W t:165.4, Temp:97.8, BP:140/80, HR:78, Nurse:kenia, Ht: 67.50, BMI:25.52. * Examination: G eneral Examination: General Appearance: N AD. C hest: s ite of pacemaker placement is healing well, chio in place. H eart: R SR. L ungs: c lear to auscultation. N maranda: Vertebral spine tenderness: a bsent. P araspinal muscle spasm: present bilaterally. R dixie of motion of neck: limited rotations. Assessment: * Assessment: 1. C oronary artery disease involving [place] coronary artery of [place] heart without angina pectoris - I25.10 (Primary) 2 . S ymptomatic bradycardia - R00.1 3 . C [place]di[place] pacemaker in situ - Z95.0 4 . N maranda muscle spasm - M62.838 ? Plan: * Treatment: 2. S ymptomatic bradycardia Notes: Resolved 3. N maranda muscle spasm Stop Cyclobenzaprine HCl Tablet, 10 MG, 1 tablet, Orally, Three times a day; S tart Cyclobenzaprine HCl Tablet, 5 MG, 1 tablet at bedtime as needed, Orally, Three times a day, 30, Refills 1. Notes: Home exercise program provided to patient, heating pad to affected areas 2 to 3 times a day? * Procedure Codes: G 2211 Complex e/m visit add on * Follow Up: p rn * Images: Billing Information: * Visit Code: 82860 Office Visit, Est Pt., Level 4. * Procedure Codes: G2211 Complex e/m visit add on. * Electronic signature of Alyssa Esposito MD on 01/07/2025 at 08:42 AM EST Sign off status: Pending * Provider: Gab Esposito M.D. Date: Generated for Kamille nobles/Abigail/Shekharitting on: 03/09/2024 08:42 AM EST History and Physical Notes * HPI (History of Present Illness) Category Sub-Category Detail Notes Category Not es Neck pain Pt had syncope e pisode 12/03 and states that he has had neck pain since then. Pt states pain started on rt side and has moved to the lt side. Pt states he cannot turn his head and it hurts to swallow at times as well. Pt has been taking Tylenol and using heat but has not had any relief HPI Here for follow up on: 12/03-2023 [facility] hospitalization, see pt docs. Pt had heart cath and 2 stents placed 12/03 and dual chamber pacemaker placed 12/05/2023, after symcope eposide on 12/03. Pt states he saw YANETH Lopez on Tuesday and was told that everything looks good and will have chio removed on Examination Category Sub-Category Detail Notes Category Not es General Examination Heart: RSR Lungs: clear to auscultatio n General Appearance: NAD Chest: site of pacemaker pl acement is healing well, chio in place Neck Vertebral spine tenderness: absent Paraspinal muscle spasm: present bilater ally Range of motion of neck: limited rotatio ns
--- OUTSIDE RECORDS SUMMARY | 2024-05-28 06:15 | XMS_ITS ---
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 Name Role Phone Jose Carlos Hurt Primary Care Provider [phone] Osmani Esposito Unavailable [phone] Allergies No Known Allergies Results Component Value Reference Range Notes P-Comprehensive Metabolic Pa michael (CMP) Reviewed date:05/29/2024 12:33:03 PM Interpretation:satisfactory Performing Lab: Notes/Report: Test performed by [employer] [address] , [address], [place] [address] Venkatesh Davis MD, Ecology Professor CLIA: [id number] Sodium 139 135-145 mmol/L Potassium 4.2 3.5-5.3 mmol/L Chloride 105 97-108 mmol/L CO2 24 22-32 mmol/L Glucose 105 65-99 mg/dL BUN 12 8-23 mg/dL Creatinine 0.82 0.70-1.30 mg/dL Calcium 9.2 8.6-10.4 mg/dL eGFR by Creatinine 89 >59 mL/min/1.73m2 Protein 6.8 6.0-8.3 g/dL Albumin 4.4 3.5-5.3 g/dL Alkaline Phosphatase 85 40-129 IU/L ALT (SGPT) 22 <5-55 IU/L AST (SGOT) 22 <5-46 IU/L Bilirubin, Total 0.6 <0.2-1.2 mg/dL A/G Ratio 1.8 1.1-2.5 P-Lipid Panel Reviewed date:05/29/2024 12:33:03 PM Interpretation:Normal Performing Lab: Notes/Report: Test performed by [facility] [employer] [facility] , [place] [address] Venkatesh Davis MD, Ecology Professor CLIA: [id number] Cholesterol 118 <200 mg/dL Triglycerides 58 <150 mg/dL HDL Cholesterol 56 >39 mg/dL Cholesterol / HDL Ratio 2.11 0.00-4.99 Ratio Non-HDL Cholesterol 62 <130 mg/dL LDL Cholesterol (Calculation) 50 <130 mg/dL LDL Cholesterol Levels* Less than 100 mg/dL Optimal 100 to 129 mg/dL Near Optimal/ Above Optimal 130 to 159 mg/dL Borderline High 160 to 189 mg/dL High 190 mg/dL and above Very High * Categories as recommended by the 2004 ATPIII guidelines LDL/HDL Ratio 0.9 <3.3 Ratio LDL Cholesterol Patient History Test Date: 05/28/2024 LDL Results: 50 Units: mg/dL % Change: - P-TSH reflex to FT4 Reviewed date:05/29/2024 12:33:03 PM Interpretation:Normal Performing Lab: Notes/Report: Test performed by [facility] [address] [facility] , [place] [address] Venkatesh Davis MD, Ecology Professor CLIA: [id number] TSH reflex to FT4 1.44 0.43-5.25 mU/L X ray : Foot, right Reviewed date:06/06/2024 01:48:02 PM Interpretation:Degenerative Changes, Old Fracture Performing Lab: Notes/Report: Degenerative Changes, Old Fracture Reason For Referral Diagnosis 1 Tailor's bunion of r ight foot (M21.621) Diagnosis 2 Pain in right foot ( M79.671) Referral Organization [facility] Referring Provider First Name Osmani Referring Provider Last Name Cate Referring Provider Speciality Family [facility] ctice Referred Provider Jessica Pérez Referred Provider Specialty Podiatry General Notes Joy Medina 2024 01:57:40 PM > faxed to [facility] Podiatry, Joy Medina 06/01/2024 09:09:00 AM > spoke with Kendra; 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; will check back next week, Joy Medina 06/06/2024 2:48:58 PM > 07/10/2024 at 10:00am Referral Priority Routine REASON FOR VISIT Discuss Referral to Podiatry Medications Medication SIG (Take, Route, Frequency, Duration) Notes Start Date End Date Status Fluorometholone 0.1 % 1 gtt in each affe cted eye once daily Active Bisoprolol Fumarate 5 MG 1 tablet Orally Once a day Active Clopidogrel Bisulfate 75 MG 1 tablet Ora lly Once a day; Duration: 90 days Active Eliquis 5 MG 1 tab(s) Orally Two times a day Active Atorvastatin Calcium 40 MG 1 tablet Oral ly Once a day; Duration: 90 days Active Problems Problem Type SNOMED Code ICD Code Onset Dates Problem Status W/U Status Risk Notes Problem Paroxysmal atrial fibrillation (654274571) Paroxysmal atrial fibrillation (I48.0) Active confirmed Problem Hyperlipidaemia (46789178) Hyperlipidemia, unspecified hyperlipidemia type (E78.5) Active confirmed Vital Signs Blood pressure systolic 130 mm Hg 05/29/19 25 Blood pressure diastolic 80 mm Hg 025 Heart Rate 78 /min 05/28/2024 Height 67.50 in 05/28/2024 Weight 170 lbs 05/28/2024 BMI 26.23 kg/m2 05/28/2024 Encounters Encounter Location Date Provider Diagnosis [facility] [address] [place] [id number] 05/28/2024 Osmani Esposito Beaver of foot L84 ; P ain in right foot M79.671 ; Tailor's bunion of right foot M21.621 ; Coronary artery disease involving holy cross coronary artery of holy cross heart without angina pectoris I25.10 ; Paroxysmal atrial fibrillation I48.0 and Hyperlipidemia, unspecified hyperlipidemia type E78.5 Assessments Encounter Date Diagnosis (ICD Code) Assessment Notes Treatment Notes Treatment Clinical Notes Section Notes 05/28/2024 Beaver of foot (ICD-10 - L84) 05/28/2024 Pain in right foot (ICD-10 - M79.671) 05/28/2024 Tailor's bunion of right foot (ICD-10 - M21.621) 05/28/2024 Coronary artery disease involving holy cross coronary artery of holy cross heart without angina pectoris (ICD-10 - I25.10) 05/28/2024 Paroxysmal atrial fibrillation (ICD-10 - I48.0) 05/28/2024 Hyperlipidemia, unspecified hyperlipidemia type (ICD-10 - E78.5) Plan Of Treatment Medication Medication Name Sig Start Date Stop Date Notes Clopidogrel Bisulfate 75 MG 1 tablet Ora lly Once a day; Duration: 90 days Atorvastatin Calcium 40 MG 1 tablet Oral ly Once a day; Duration: 90 days Referrals Referral Date Details 05/28/2024 05/28/2024, Jessica Allan Appt Details Follow Up: via phone to repo rt test results, 6 Months, Reason: Progress Notes * Nathen SANTIAGO ANJUMOB: [birth year] (79 yo M)Acc No.[id number]:05/28/2024 Progress Notes Patient: Nathen MENDOZA Provider: Gab Esposito M.D. :1945 A ge:78 Y S ex:Male Date:05/28/2024 Address:[address] [place], [id number] Pcp:Jose Carlos Hurt Subjective: * Chief Complaints: * 1 . Discuss Referral to Podiatry. * HPI: H PI: 78 year old male presents with c/o Patient is here today for?Pt requesting referral to Podiatry. Pt states he keeps getting corn on rt pinky toe and would like to have it removed. * ROS: D ERMATOLOGY: no R nick. n o H scout. G ASTROENTEROLOGY: no N ausea. n o V omiting. U ROLOGY: no D ifficulty urinating. n o B lood in urine. * Medical History: S hingles, Prostate cancer, GERD, Zoster keratitis, Hypertension, Coronary Artery Disease, heart block, s/p pacemaker placement 2023, Atrial fibrillation. * Surgical History: P rostatatectomy 04/2005, LT Cataract 07/2010, Heart Cath, 2 Stents Placed 12/04/2023, Dual Chamber Pacemaker Placed, Dr. Arreola 12/05/2023. * Hospitalization/Major Diagno stic Procedure: S yncope- [facility] 12/03-08/2023. * Family History: F ather: . M other: , diagnosed with Stroke. 1 son(s) , 1 daughter(s) . . * Social History: C URRENT TOBACCO USE S moking Status: P atient does NOT smoke. C affeine: no. Home smoke detector use: yes. Marital Status: . Past smoking status: no. * Medications: T aking Eliquis 5 MG Tablet 1 tab(s) Orally Two times a day , Taking Bisoprolol Fumarate 5 MG Tablet 1 tablet Orally Once a day , Taking Atorvastatin Calcium 40 MG Tablet 1 tablet Orally Once a day , Taking Clopidogrel Bisulfate 75 MG Tablet 1 tablet Orally Once a day , Taking Fluorometholone 0.1 % Suspension 1 gtt in each affected eye once daily , Discontinued Aspirin 81 MG Tablet Chewable 1 tablet Orally Once a day , Discontinued Cyclobenzaprine HCl 5 MG Tablet 1 tablet at bedtime as needed Orally Three times a day , Medication List reviewed and reconciled with the patient * Allergies: N .K.D.A. Objective: * Vitals: W t: 170, Temp: 97.8, BP: 130/80, HR: 78, Nurse: kenia, Ht: 67.50, BMI:26.23. * Examination: G eneral Examination: General Appearance: N AD. H eart: R SR. L ungs:?clear to auscultation. P eripheral pulses: n ormal (2+) bilaterally. E xtremities:?bunionette deformity on right foot with overlapping of the 4 th toe on the 5 th toe, small corn on lateral side of toe. Assessment: * Assessment: 1. C orn of foot - L84 (Primary) 2 . P ain in right foot - M79.671 ? 3 . T ailor's bunion of right foot - M21.621 4 . C oronary artery disease involving holy cross coronary artery of holy cross heart without angina pectoris - I25.10 5. P aroxysmal atrial fibrillation - I48.0 6 . H yperlipidemia, unspecified hyperlipidemia type - E78.5 Plan: * Treatment: ? Referral To:Jessica Pérez??Podiatry ?Reason: 2.?Tailor's bunion of right foot?Imaging: X ray : Foot, right (Performed Date - 05/28/2024)?Degenerative Changes, Old Fracture* Shonna Shultz 06/06/2024 01:4 7:53 PM > see phone encounter ? Referral To:Jessica Pérez??Podiatry ?Reason: 3.?Coronary artery disease involving holy cross coronary artery of holy cross heart without angina pectoris? Refill Clopidogrel Bisulfate Tablet, 75 MG, 1 tablet, Orally, Once a day, 90 days, 90, Refills 1; Refill Atorvastatin Calcium Tablet, 40 MG, 1 tablet, Orally, Once a day, 90 days, 90, Refills 1. ?LAB: P-Comprehensive Metabolic Panel (CMP) (Collection Date & Time - 05/28/2024 10:46 AM)?satisfactory* Value Reference Range A /G Ratio 1.8 1.1-2.5 - * A lbumin 4.4 3.5-5.3 - g/dL * A lkaline Phosphatase 85 40-129 - IU/L * A LT (SGPT) 22 <5-55 - IU/L * A ST (SGOT) 22 <5-46 - IU/L * B ilirubin, Total 0.6 <0.2-1.2 - mg/dL * B UN 12 8-23 - mg/dL * C alcium 9.2 8.6-10.4 - mg/dL * C hloride 105 97-108 - mmol/L * C O2 24 22-32 - mmol/L * C reatinine 0.82 0.70-1.30 - mg/dL * G lucose 105 H 65-99 - mg/dL * P otassium 4.2 3.5-5.3 - mmol/L * S odium 139 135-145 - mmol/L * P rotein 6.8 6.0-8.3 - g/dL * e GFR by Creatinine 89 >59 - mL/min/1.73m2 * KingJenny 05/29/2024 12:32:22 PM > Pt informed ?LAB: P-Lipid Panel (Collection Date & Time - 05/28/2024 10:46 AM)?Normal* Value Reference Range C holesterol / HDL Ratio 2.11 0.00-4.99 - Ratio * C holesterol 118 <200 - mg/dL * H DL Cholesterol 56 >39 - mg/dL * L DL Cholesterol (Calculation) 50 <130 - mg/d L * L DL/HDL Ratio 0.9 <3.3 - Ratio * N on-HDL Cholesterol 62 <130 - mg/dL * T riglycerides 58 <150 - mg/dL * KingJenny 05/29/2024 12:32:22 PM > Pt informed 4.?Hyperlipidemia, unspecified hyperlipidemia type?LAB: P-Comprehensive Metabolic Panel (CMP) (Collection Date & Time - 05/28/2024 10:46 AM)?satisfactory* Value Reference Range A /G Ratio 1.8 1.1-2.5 - * A lbumin 4.4 3.5-5.3 - g/dL * A lkaline Phosphatase 85 40-129 - IU/L * A LT (SGPT) 22 <5-55 - IU/L * A ST (SGOT) 22 <5-46 - IU/L * B ilirubin, Total 0.6 <0.2-1.2 - mg/dL * B UN 12 8-23 - mg/dL * C alcium 9.2 8.6-10.4 - mg/dL * C hloride 105 97-108 - mmol/L * C O2 24 22-32 - mmol/L * C reatinine 0.82 0.70-1.30 - mg/dL * G lucose 105 H 65-99 - mg/dL * P otassium 4.2 3.5-5.3 - mmol/L * S odium 139 135-145 - mmol/L * P rotein 6.8 6.0-8.3 - g/dL * e GFR by Creatinine 89 >59 - mL/min/1.73m2 * Jenny Xie 05/29/2024 12:32:22 PM > Pt informed ?LAB: P-Lipid Panel (Collection Date & Time - 05/28/2024 10:46 AM)?Normal* Value Reference Range C holesterol / HDL Ratio 2.11 0.00-4.99 - Ratio * C holesterol 118 <200 - mg/dL * H DL Cholesterol 56 >39 - mg/dL * L DL Cholesterol (Calculation) 50 <130 - mg/d L * L DL/HDL Ratio 0.9 <3.3 - Ratio * N on-HDL Cholesterol 62 <130 - mg/dL * T riglycerides 58 <150 - mg/dL * Jenny Xie 05/29/2024 12:32:22 PM > Pt informed ?LAB: P-TSH reflex to FT4 (Collection Date & Time - 05/28/2024 10:46 AM)? Normal* Value Reference Range T SH reflex to FT4 1.44 0.43-5.25 - mU/L * Jenny Xie 05/29/2024 12:32:22 PM > Pt informed * Procedure Codes: G 2211 Complex e/m visit add on, 3075F SYST BP GE 130 - 139MM HG, 3079F DIAST BP 80-89 MM HG * Follow Up: v ia phone to report test results, 6 Months * Images: Billing Information: * Visit Code: 85139 Office Visit, Est Pt., Level 4. * Procedure Codes: G2211 Complex e/m visit add on. 3075F SYST BP GE 130 - 139MM HG. 3079F DIAST BP 80-89 MM HG. * Electronic signature of Alyssa Esposito MD on 01/07/2025 at 08:42 AM EST Sign off status: Pending * Provider: Gab Esposito M.D. Date: 0 05/28/2024 Generated for Kamille nobles/Abigail/Nisreen on: 1 03/09/2024 08:42 AM EST History and Physical Notes * HPI (History of Present Illness) Category Sub-Category Detail Notes Category Not es HPI Patient is here today for Pt req uesting referral to Podiatry. Pt states he keeps getting corn on rt pinky toe and would like to have it removed Examination Category Sub-Category Detail Notes Category Not es General Examination Heart: RSR Lungs: clear to auscultatio n Extremities: bunionette deformity on right foot with overlapping of the 4 th toe on the 5 th toe, small corn on lateral side of toe General Appearance: NAD Peripheral pulses: normal (2+) bilatera lly Consultation Request Notes Referral Date Referring Provider Referred Provider Not es 05/28/2024 Osmani Esposito Sofie
--- OUTSIDE RECORDS SUMMARY | 2024-11-21 12:15 | XMS_ITS | Encounter Summary ---
Author Organization [facility] Address [address] 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; Senile entropion of right eye; After cataract not obscuring vision, bilateral Social History Tobacco Use Types Packs/Day Years Used Date Smoking Tobacco: Never Passive Smoke Exposure: Never Smokeless Tobacco: Never Tobacco Cessation:Counseling Given: Not Answered Sex and Gender Information Value Date Recorded Sex Assigned at Not on file Legal Sex Male 8:56 PM EDT Gender Identity Not on file Sexual Orientation Not on file documented as of this encounter Miscellaneous Notes * Patient Instructions - Alix Swan MD - 11/21/2024 1:15 PM EDT Valtrex 1g twice a day for 10 days then once a day FML one drop 4 times a day to right eye until next visit Obi ointment 4 times a day to right eye until next visit * Progress Notes - Alix Swan MD - 11/21/2024 1:15 PM EDT Images from the original note were not included. Subjective HPI Decreased vision 78 yo male states onset of decreased vision OD started 2-3 month ago. Reports severe photophobia and dry eye OD. Symptoms have gradually worsened since onset. Denies discharge. Currently using emycinung prn and PF AT prn. Last edited by Arnulfo Whitten on 11/21/2024 12:49 PM. ROS Positive for: Eyes Negative for: Constitutional, Gastrointestinal, Neurological, Skin, Genitourinary, Musculoskeletal,HENT, Endocrine, Cardiovascular, Respiratory, Psychiatric, Allergic/Imm, Heme/Lymph Last edited by Arnulfo Whitten on 11/21/2024 12:41 PM. Objective Base Eye Exam Visual Acuity (Snellen - Linear) Right Left Dist sc 20/25 -2 20/20 -1 Tonometry (Tonopen, 12:56 PM) Right Left Pressure 13 13 Pupils Pupils APD Right PERRL None Left PERRL None Visual Alvarado Right Left Full Full Extraocular Movement Right Left Full, Ortho Full, Ortho Neuro/Psych Oriented x3: Yes Mood/Affect: Normal Slit Lamp and Fundus Exam External Exam Right Left External Normal Normal Slit Lamp Exam Right Left Lids/Lashes spastic entropion LL Normal for age Conjunctiva/Sclera inj++ Normal Cornea Sup 50% of cornea swollen with prominent pannus but no obvious infiltrates and KP Clear and compact Anterior Chamber Deep and quiet Deep and quiet Iris Normal pupil size and shape Normal pupil size and shape Lens PC IOL, tr PCO PC IOL, tr PCO Assessment/Plan Diagnoses and all orders for this visit: Stromal herpes zoster keratitis - valACYclovir (Valtrex) 1 g tablet; Take 1 tablet by mouth 2 times a day for 10 days, THEN 1 tablet daily. - fluorometholone (FML) 0.1 % ophthalmic suspension; Administer 1 drop into the right eye 4 times aday. - sodium chloride 5 % ophthalmic ointment; Apply 1 Application to right eye 4 times a day. 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 Senile entropion of right eye After cataract not obscuring vision, bilateral History of Right HZO February 2020 without apparent eye involvement but 3 mths later in June 2020 trouble with right eye Was seen by Dr. Overton from June 2020 until last December very regularly but not since December so here for another opinion as eye not getting better Was on zirgan daily for several months and no steroid drops until previous visit then keratitic precipitate (KP) recurred on dropping to pred forte (PF) every other day (QOD) so increased back to every day (QD) and better today on daily (FML) so keep on qd Explained chronic nature of inflammation and corneal haze that might have been partly due to chronic zirgan use Stayed on Valtrex every day (QD) so will CPM for now and cont try FML every other day (qd) as doingwell since cat sx and has not reduced yet 01/17/23 Stopped Valtrex, ran out of FML (as prescribed to [facility] rather than [facility] as pt did not statehe had changed pharmacies at last visit with me) and had recurrent inflam right eye (OD) so restarted on pred forte (PF) BID and currently on every day (QD) Intraocular pressure (IOP) sl elevated, corneal haze much improved so rec switching back to FML butstay on every day (QD) and resume PO valtrex every day (qd) 04/18/23 New SEI's and pannus right eye (OD) today despite FML every day (QD) and po valtrex every day (qd) Will increase FML to BID and stay on every day (qd) valtrex but might need to increase valtrex to bid too Watch intraocular pressure (IOP) as staying a little higher than left eye (OS) 06/13/23 Ran out of drops 1 week ago and today with persistent nummular infiltrates so will need to resume FML BID and po valtrex every day (qd) 11/14/23 Voluntarily stopped valtrex when ran out Still using FML but only at bedtime (qhs) rather than BID Ok to cpm as no infiltrates noted today 11/21/24 Recurrent stromal keratitis right eye (OD) as pt stopped all meds after last visit 1 year ago Rec: Valtrex 1g twice a day for 10 days then once a day FML one drop 4 times a day to right eye until next visit Obi ointment 4 times a day to right eye until next visit RTC 2 wks for intraocular pressure (IOP) and cornea check Entropion right lower eyelid (RLL) Lashes hifricated by Dr. Varma and remain gone but now with spastic entropion for which pt already has appt with Dr. Lechuga 12/25/24 Explained the diagnoses, plan, and follow up with the patient and they expressed understanding. Patient expressed understanding of the importance of proper follow up care. Follow up in about 2 weeks (around 12/05/2024) for cornea check, IOP check. Tobacco Use: Low Risk (11/21/2024) Patient History Smoking Tobacco Use: Never Smokeless Tobacco Use: Never Passive Exposure: Never The patient has been counseled on tobacco cessation: Not Applicable documented in this encounter Plan of Treatment Upcoming Encounters Date Type Department Care Team (Late st Contact Info) Description 01/14/2025 1:00 PM EST Office Visit [facility] [address] [place] [address] Alix Swan MD [address] [place] [address] 01/14/2025 3:00 PM EST Consult [facility] [address] [place] [address] Alix Swan MD [address] [place] [address] documented as of this encounter Visit Diagnoses Diagnosis Stromal herpes zoster keratitis- Primary 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
--- OUTSIDE RECORDS SUMMARY | 2024-12-05 07:15 | XMS_ITS | Encounter Summary ---
Author Organization [facility] Address [address] 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 Subjective HPI 2 wk inflammation and intraocular pressure (IOP) check. Per pt visual acuity (VA) has improved since he started his drops (gtts). He states the drops (gtts) cause blurriness and he did take them before his appt. He is compliant with treatment , valACYclovir (Valtrex) once a day, FML right eye (OD) QID, Sodium chloride right eye (OD) QID. No issues or concerns today. I noticed when putting drops (gtts) in for intraocular pressure (IOP) check his right lower eyelid (RLL) was curled inwards Last edited by Sukumar Ortiz on 12/05/2024 8:14 AM. ROS Positive for: Eyes Negative for: Constitutional, Gastrointestinal, Neurological, Skin, Genitourinary, Musculoskeletal,HENT, Endocrine, Cardiovascular, Respiratory, Psychiatric, Allergic/Imm, Heme/Lymph Last edited by Sukumar Ortiz on 12/05/2024 8:06 AM. Objective Base Eye Exam Visual Acuity (Snellen - Linear) Right Left Dist sc 20/40 20/20 Dist ph sc 20/25 +2 Tonometry (Tonopen, 8:11 AM) Right Left Pressure 17 11 Pupils Pupils Right PERRL Left PERRL Neuro/Psych Oriented x3: Yes Mood/Affect: Normal Slit Lamp and Fundus Exam External Exam Right Left External Normal Normal Slit Lamp Exam Right Left Lids/Lashes spastic entropion LL Normal for age Conjunctiva/Sclera tr inj Normal Cornea Sup 50% of cornea less swollen, no keratitic precipitate (KP), reduced pannus++ Clear and compact Anterior Chamber Deep and quiet Deep and quiet Iris Normal pupil size and shape Normal pupil size and shape Lens PC IOL, tr PCO PC IOL, tr PCO Assessment/Plan Diagnoses and all orders for this visit: 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 Varma and remain gone but now with spastic entropion for which pt already has appt with Dr. Lechuga 12/25/24 Explained the diagnoses, plan, and follow up with the patient and they expressed understanding. Patient expressed understanding of the importance of proper follow up care. Follow up in about 6 weeks (around 01/16/2025) for keep [place] appt for 01/17/25. Tobacco Use: Low Risk (12/05/2024) Patient History Smoking Tobacco Use: Never Smokeless Tobacco Use: Never Passive Exposure: Never The patient has been counseled on tobacco cessation: Not Applicable documented in this encounter Plan of Treatment Upcoming Encounters Date Type Department Care Team (Late st Contact Info) Description 01/14/2025 1:00 PM EST Office Visit [facility] [address] [place] [address] Alix Swan MD [address] [place] [address] 01/14/2025 3:00 PM EST Consult [facility] [address] [place] [address] Alix Swan MD [address] [place] [address] documented as of this encounter [...] plan has been documented for the patient 12/05/2024 8:37 AM EDT documented as of this encounter Care Teams Certified Flight Instructor Relationship Specialty Start Date End Date Jarett Hurt MD [address] [place] [address] PCP - General 07/11/20 documented as of this encounter
--- OUTSIDE RECORDS SUMMARY | 2024-12-17 12:45 | XMS_ITS | Encounter Summary ---
Author Organization [facility] Address [address] [place] [address] Care Team Providers Care Shearing Machine Feeder Name Role Phone Jarett Hurt MD Primary Care Provider +1- [phone] Reason for Visit * Reason Comments Follow-up Encounter Details Date Type Department Care Team (Late st Contact Info) Description 12/17/2024 1:45 PM EDT Office Visit [facility] [address] [place] [address] Alix Swan MD [address] [place] [address] Stromal herpes zoster keratitis (Primary [...] Progress Notes - Alix Swan MD - 12/17/2024 1:45 PM EDT Images from the original note were not included. Subjective Chief Complaint Follow-up HPI 2 wk intraocular pressure (IOP) and cornea check Patient has no additional concerns beyond his scheduled cornea check and intraocular pressure (IOP)check. He denies any changes in his vision or new problems. Patient has been using erythromycin QID, Pred Forte QID, and is taking valacyclovir. Last edited by Deeapk Augustine on 12/17/2024 2:24 PM. ROS Positive for: Eyes Negative for: Constitutional, Gastrointestinal, Neurological, Skin, Genitourinary, Musculoskeletal,HENT, Endocrine, Cardiovascular, Respiratory, Psychiatric, Allergic/Imm, Heme/Lymph Last edited by Deepak Augustine on 12/17/2024 2:23 PM. Objective Base Eye Exam Visual Acuity (Snellen - Linear) Right Left Dist sc 20/50 -1 20/25 -1 Dist ph sc 20/25 Near sc J2 OU Tonometry (iCare Tonometry, 2:21 PM) Right Left Pressure 11 9 Neuro/Psych Oriented x3: Yes Mood/Affect: Normal Slit Lamp and Fundus Exam External Exam Right Left External Normal Normal Slit Lamp Exam Right Left Lids/Lashes spastic entropion LL Normal for age Conjunctiva/Sclera Normal Normal Cornea Sup 50% of cornea no longer swollen, no keratitic precipitate (KP), reduced pannus++ [...] ran out of FML (as prescribed to [facility] rather than [facility] as pt did not statehe had changed [...] next visit Cont PO valtrex QD Watch intraocular pressure (IOP) 12/17/24 Looks further improved Decrease pred forte (PF) to BID after 2 wks on TID RTC 1 mth for cornea and intraocular pressure (IOP) check OD Entropion right lower eyelid (RLL) Lashes hifricated by Dr. Varma and remain gone but now with spastic entropion for which pt already has appt with Dr. Lechuga 12/25/24 Explained the diagnoses, plan, and follow up with the patient and they expressed understanding. Patient expressed understanding of the importance of proper follow up care. Follow up in about 1 month (around 01/17/2025) for IOP check, cornea check. Tobacco Use: Low Risk (12/17/2024) Patient History Smoking Tobacco Use: Never Smokeless Tobacco Use: Never Passive Exposure: Never The patient has been counseled on tobacco cessation: Not Applicable documented in this encounter Plan of Treatment Upcoming Encounters Date Type Department Care Team (Late st Contact Info) Description 01/14/2025 1:00 PM EST Office Visit [facility] [address] [place] [address] Alix Swan MD [address] [place] [address] 01/14/2025 3:00 PM EST Consult [facility] [address] [place] [address] Alix Swan MD [address] [place] [address] documented as of this encounter [...] plan has been documented for the patient 12/17/2024 3:14 PM EDT documented as of this encounter Care Teams Shearing Machine Feeder Relationship Specialty Start Date End Date Jarett Hurt MD [address] [place] [address] PCP - General 07/11/20 documented as of this encounter
--- OUTSIDE RECORDS SUMMARY | 2025-01-07 08:42 | XMS_ITS | Encounter Summary ---
Author Organization [facility] Address [address] [place] [address] Care Team Providers Care Electrical Assembly Supervisor Name Role Phone Jarett Hurt MD Primary Care Provider +1- [phone] Encounter Details Date Type Department Care Team (Latest Contact Info) Description 11/21/2024 Travel Social History Tobacco Use Types Packs/Day Years Used Date Smoking Tobacco: Never Passive Smoke Exposure: Never Smokeless Tobacco: Never Sex and Gender Information Value Date Recorded Sex Assigned at Not on file Legal Sex Male 8:56 PM EDT Gender Identity Not on file Sexual Orientation Not on file documented as of this encounter Plan of Treatment Upcoming Encounters Date Type Department Care Team (Late st Contact Info) Description 01/14/2025 1:00 PM EST Office Visit [facility] [address] [place] [address] Alix Swan MD [address] [place] [address] 01/14/2025 3:00 PM EST Consult [facility] [address] [place] [address] Alix Swan MD [address] [place] [address] documented as of this encounter Visit Diagnoses Not on filedocumented in this encounter Additional Health Concerns Assessment Noted Time A fall risk assessment has been complete d for the patient 11/21/2024 12:50 PM EDT A Body Mass Index follow-up plan has been documented for the patient 11/21/2024 2:02 PM EDT documented as of this encounter Care Teams Electrical Assembly Supervisor Relationship Specialty Start Date End Date Jarett Hurt MD [address] [place] [address] PCP - General 07/11/20 documented as of this encounter
--- OUTSIDE RECORDS SUMMARY | 2025-01-07 08:42 | XMS_ITS | Encounter Summary ---
Author Organization [facility] Address [address] [place] [address] Care Team Providers Care Belt Maker Name Role Phone Jarett Hurt MD Primary Care Provider +1- [phone] Encounter Details Date Type Department Care Team (Latest Contact Info) Description 12/17/2024 Travel Social History Tobacco Use Types Packs/Day [...] Description 01/14/2025 1:00 PM EST Office Visit [facility] [address] [place] [address] Alix Swan MD [address] [place] [address] 01/14/2025 3:00 PM EST Consult [facility] [address] [place] [address] Alix Swan MD [address] [place] [address] documented as of this encounter Visit Diagnoses Not on filedocumented in this encounter Additional Health Concerns Assessment Noted Time A fall risk assessment has been complete d for the patient 11/21/2024 12:50 PM EDT A Body Mass Index follow-up plan has been documented for the patient 12/17/2024 3:14 PM EDT documented as of this encounter Care Teams Belt Maker Relationship Specialty Start Date End Date Jarett Hurt MD [address] [place] [address] PCP - General 07/11/20 documented as of this encounter
--- OUTSIDE RECORDS SUMMARY | 2025-01-07 08:42 | XMS_ITS | Patient Health Record ---
Author Organization [facility] Address [address] [place] [id number] Care Team Providers Care Supply Officer Name Role Phone Jose Carlos Hurt Primary Care Provider [place] Unavailable [phone] Allergies No Known Allergies Results Component Value Reference Range Notes P-Comprehensive Metabolic Pa michael (CMP) Reviewed date:05/29/2024 12:33:03 PM Interpretation:satisfactory Performing Lab: Notes/Report: Test performed by [facility] [address] [place] [address] , [address], [place] [address] Venkatesh Davis MD, Strategic Account Executive CLIA: [id number] Sodium 139 135-145 mmol/L Potassium 4.2 3.5-5.3 [...] Interpretation:Normal Performing Lab: Notes/Report: Test performed by [facility] [address] [place] [address] , [place] [address] Venkatesh Davis MD, Strategic Account Executive CLIA: [id number] Cholesterol 118 <200 mg/dL Triglycerides 58 <150 [...] Interpretation:Normal Performing Lab: Notes/Report: Test performed by [facility] [place] [address] Venkatesh Davis MD, Strategic Account Executive CLIA: [id number] TSH reflex to FT4 1.44 0.43-5.25 mU/L X ray : Foot, right Reviewed date:06/06/2024 01:48:02 PM Interpretation:Degenerative Changes, Old Fracture Performing Lab: Notes/Report: Degenerative Changes, Old Fracture Medications Medication SIG (Take, Route, Frequency, Duration) Notes Start Date End Date Status Fluorometholone 0.1 % 1 gtt in each affected eye once daily Active Bisoprolol Fumarate 5 MG 1 tablet Orally Once a day Active Eliquis 5 MG 1 tab(s) Orally Two times a day Active Clopidogrel Bisulfate 75 MG Take 1 tablet by mouth once daily; Duration: 90 DUE FOR APPT Active Atorvastatin Calcium 40 MG Take 1 tablet by mouth once daily; Duration: 90 Active Immunizations Vaccine Route Administration Date Status Comme nts COVID 19 Moderna Unknown 03/26/2020 Administered COVID 19 Moderna Unknown 04/23/2020 Administered COVID 19 Moderna Unknown 11/26/2020 Administered COVID 19 Moderna Unknown 07/10/2021 Administered Fluzone High Dose (65yr and older) Unknown 01/20/2022 Administered Shingrix Unknown 12/31/2020 Administered Shingrix Unknown 03/27/2021 Administered Tetanus Tdap-Adacel (over 7yrs) IM Intramuscular 07/08/2006 Administered Problems Problem Type SNOMED Code ICD Code Onset Dates Problem Status W/U Status Risk Notes Problem Gastroesophageal reflux disease (638850033) GERD (gastroesophageal reflux disease) (K21.9) Active confirmed Problem Carpal tunnel syndrome (96650562) Carpal tunnel syndrome (G56.00) Active confirmed Problem Paroxysmal atrial fibrillation (385950028) Paroxysmal atrial fibrillation (I48.0) Active confirmed Problem Cataract (971230904) Cataract (H26.9) Active confirmed Problem Malignant tumor of prostate (083452905) Prostate cancer (C61) Active confirmed Problem History of malignant neoplasm of prostate (354762802) History of prostate cancer (Z85.46) Active confirmed Problem 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 (778133398545185) Coronary artery disease involving pa[place]osh[place] coronary artery of pai[place]shoshone heart without angina pectoris (I25.10) Active confirmed Problem Hyperlipidaemia (09873499) Hyperlipidemia, unspecified hyperlipidemia type (E78.5) Active confirmed Problem Cardiac pacemaker in situ (021199110) Cardiac pacemaker in situ (Z95.0) Active confirmed Problem Esophageal dysphagia (30269694) Esophageal dysphagia (R13.14) Active confirmed Vital Signs Heart Rate 78 /min 05/28/2024 Blood pressure diastolic 80 mm Hg 05/28/2024 Height 67.50 in 05/28/2024 Blood pressure systolic 130 mm Hg 05/28/2024 Weight 170 lbs 05/28/2024 BMI 26.23 kg/m2 05/28/2024 Encounters Encounter Location Date [facility] [address] [place] [id number] 05/28/2024 Osmani [place] of foot L84 ; P ain in right foot M79.671 ; Tailor's bunion of right foot M21.621 ; Coronary artery disease involving pa[place]osh[place] coronary artery of [place] heart without angina pectoris I25.10 ; Paroxysmal atrial fibrillation I48.0 and Hyperlipidemia, unspecified hyperlipidemia type E78.5 [facility] [address] [place] [id number] 05/25/2024 Jose Carlos Hurt [facility] [address] [place], [place] [id number] 06/06/2024 Osmanidalila Esposito Assessments Encounter Date Diagnosis (ICD Code) Assessment Notes Treatment Notes Treatment Clinical Notes Section Notes 05/28/2024 Pain in right foot (ICD-10 - M79.671) 05/28/2024 [place] of foot (ICD-10 - L84) 05/28/2024 Tailor's bunion of right foot (ICD-10 - M21.621) 05/28/2024 Coronary artery disease involving pa[place]shosh[place] coronary artery of pa[place]shosh[place] heart without angina pectoris (ICD-10 - I25.10) 05/28/2024 Paroxysmal atrial fibrillation (ICD-10 - I48.0) 05/28/2024 Hyperlipidemia, unspecified hyperlipidemia type (ICD-10 - E78.5) Plan Of Treatment No Information Insurance Providers Payer Name Payer Address Payer Phone Subscriber Number Group Number Insured Name Patient Relationship to Insured Coverage Start Date Coverage End Date MEDICARE PART B [address] [address] [place] [id number] [id number] Nathen SANTIAGO Self - patient is the insured [facility] [address] [place] [address] [phone] [id number] Nathen SANTIAGO Self - patient is the insured Medications Administered Medication Instructions Date of Administration Dosage Notes Dexamethasone 04/28/2006 1 mL Dexamethasone 12/09/2015 1 mL Dexamethasone 06/29/2017 1 mL Medical (General) History Medical History History ICD Code shingles Prostate cancer GERD Zoster keratitis hypertension Coronary Artery Disease heart block, s/p pacemaker placement Nov Atrial fibrillation Surgical History Surgery Date(Month/Year) Prostatatectomy 04/2005 LT Cataract 07/2010 Heart Cath, 2 Stents Placed 12/04/2023 Dual Chamber Pacemaker Placed, Dr. Roseanne sue 12/05/2023 Hospitalization History Reason Date(Month/Year) Syncope- [facility] 12/03-08/2023
--- OUTSIDE RECORDS SUMMARY | 2025-01-07 08:42 | XMS_ITS | Encounter Summary ---
Author Organization [facility] Address [address] [place] [address] Care Team Providers Care Transit Bus Driver Name Role Phone Jarett Hurt MD Primary Care Provider +1- [phone] Encounter Details Date Type Department Care Team (Latest Contact Info) Description 12/05/2024 Travel Social History Tobacco Use Types Packs/Day [...] Description 01/14/2025 1:00 PM EST Office Visit [facility] [address] [place] [address] Alix Swan MD [address] [place] [address] 01/14/2025 3:00 PM EST Consult [facility] [address] [place] [address] Alix Swan MD [address] [place] [address] documented as of this encounter Visit Diagnoses Not on filedocumented in this encounter Additional Health Concerns Assessment Noted Time A fall risk assessment has been complete d for the patient 11/21/2024 12:50 PM EDT A Body Mass Index follow-up plan has been documented for the patient 12/05/2024 8:37 AM EDT documented as of this encounter Care Teams Transit Bus Driver Relationship Specialty Start Date End Date Jarett Hurt MD [address] [place] [address] PCP - General 07/11/20 documented as of this encounter
--- OUTSIDE RECORDS SUMMARY | 2025-01-07 08:42 | XMS_ITS | Encounter Summary ---
Author Organization [facility] Address [address] [place] [address] Care Team Providers Care Extrusion Die Corrector Name Role Phone Jarett Hurt MD Primary Care Provider +1- [phone] Encounter Details Date Type Department Care Team (Latest Contact Info) Description 11/20/2024 Travel Social History Tobacco Use Types Packs/Day [...] Description 01/14/2025 1:00 PM EST Office Visit [facility] [address] [place] [address] Alix Swan MD [address] [place] [address] 01/14/2025 3:00 PM EST Consult [facility] [address] [place] [address] Alix Swan MD [address] [place] [address] documented as of this encounter Visit Diagnoses Not on filedocumented in this encounter Additional Health Concerns Assessment Noted Time A fall risk assessment has been complete d for the patient 11/14/2023 3:27 PM EDT A Body Mass Index follow-up plan has been documented for the patient 11/14/2023 3:43 PM EDT documented as of this encounter Care Teams Extrusion Die Corrector Relationship Specialty Start Date End Date Jarett Hurt MD [address] [place] [address] PCP - General 07/11/20 documented as of this encounter
--- OUTSIDE RECORDS SUMMARY | 2025-01-07 08:42 | XMS_ITS | Encounter Summary ---
Author Organization [facility] Address [address] [place] [address] Care Team Providers Care Software Database Architect Name Role Phone Jarett Hurt MD Primary Care Provider +1- [phone] Encounter Details Date Type Department Care Team (Late st Contact Info) Description 11/19/2024 Telephone [employer] [facility] [address] [place] [address] Alix Swan MD [address] [address] Social History Tobacco Use Types Packs/Day Years Used Date Smoking Tobacco: Never Passive Smoke Exposure: Never Smokeless Tobacco: Never Sex and Gender Information Value Date Recorded Sex Assigned at Not on file Legal Sex Male 8:56 PM EDT Gender Identity Not on file Sexual Orientation Not on file documented as of this encounter Miscellaneous Notes * Telephone Encounter - Ariadne Russ - 11/19/2024 12:03 PM EDT Triage Note 11/19/2024 12:03 PM Scheduled patient for 11/[address] REYNOSO * Telephone Encounter - Esme Ascencio - 11/19/2024 9:33 AM EDT Clinical Concern/Question Reason for Call: Patient calling he is currently scheduled in [place] with provider, in on a wait list. Patient is concerned as he had shingles in the past, and has had issues with vision and eyes since. Patient stated his right eye is bad, and he has very little vision currently.and very sensitive to light, and watery, even on a dreary day he has to wear sunglasses because the light is to bright. Patient states he has to close the eye a lot and is on drops but is still having issues. Patient would like to see if he can be seen more urgently he does not mind coming to [facility] or [place]. Requesting call back. Best contact number: Other: [phone] Optimal time of day to reach caller: ANYTIME Additional comments/information from caller: None Note: Please do not reply to this message. Follow-up communication and further actions as a result of this message need to be communicated with the patient directly, if the patient is not active onMyChart. If the patient is active on MyChart, they will receive notification of the communication/outcome via [employer]. documented in this encounter Plan of Treatment Upcoming Encounters Date Type Department Care Team (Late st Contact Info) Description 01/14/2025 1:00 PM EST Office Visit [facility] [address] [place] [address] Alix Swan MD [address] [address] 01/14/2025 3:00 PM EST Consult [facility] [address] [place] [address] Alix Swan MD [address] [place] [address] documented as of this encounter Visit Diagnoses Not on filedocumented in this encounter Additional Health Concerns Assessment Noted Time A fall risk assessment has been complete d for the patient 11/14/2023 3:27 PM EDT A Body Mass Index follow-up plan has been documented for the patient 11/14/2023 3:43 PM EDT documented as of this encounter Care Teams Software Database Architect Relationship Specialty Start Date End Date Jarett Hurt MD [address] [place] [address] PCP - General 07/11/20 documented as of this encounter
--- OUTSIDE RECORDS SUMMARY | 2025-01-07 08:42 | XMS_ITS | Clinical Summary ---
Author Organization [facility] Address [address] [place] [address] Care Team Providers Care Assistant Curator Name Role Phone Jarett Hurt MD Primary Care Provider [phone] Allergies No known active allergies Medications erythromycin (Romycin) 5 MG/GM ophthalmic ointment INSTILL A SMALL AMOUNT OF OINTMENT INTO RIGHT EYE TWICE DAILY 5 Active apixaban (Eliquis) 5 MG tablet 2 times a day. 5 Active ASPIRIN 81 MG chewable tablet Chew 1 tablet. Active clopidogrel (Plavix) 75 MG tablet Take 1 tablet by mouth once daily; Duration: 90 4 Active atorvastatin (Lipitor) 40 MG tablet Take 1 tablet by mouth once daily; Duration: 90 4 Active valACYclovir (Valtrex) 1 g tabletIndicatio ns:Stromal herpes zoster keratitis Take 1 tablet by mouth 2 times a day for 10 days, THEN 1 tablet daily. 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 15 mL 11 5 Active sodium chloride 5 % ophthalmic ointmentIndicat ions:Stromal herpes zoster keratitis Apply 1 Application to right eye 4 times a day. 7 g 3 5 Active bisoprolol (Zebeta) 5 MG tablet Take 1 tablet by mouth daily. 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; Senile entropion of right eye; After cataract not obscuring vision, bilateral 12/17/2024 Travel 12/05/2024 8:15 AM EDT Office Visit [facility] [address] [place] [address] lAix Swan MD Stromal herpes zoster keratitis (Primary Dx); 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; Senile entropion of right eye; After cataract not obscuring vision, bilateral 12/05/2024 Travel 11/21/2024 1:15 PM EDT Office Visit [address], [facility] [place] [address] Alix Swan MD Stromal herpes zoster keratitis (Primary Dx); 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; Senile entropion of right eye; After cataract not obscuring vision, bilateral 11/21/2024 Travel 11/20/2024 Travel 11/19/2024 [facility] [address] [place] [phone] Alix Swan MD from Last 3 Months Family History Medical History Relation Name Comments No Known Problems Father No Known Problems Mother Relation Name Status Comments Father Mother Social History Tobacco Use Types Packs/Day Years Used Date Smoking Tobacco: Never Passive Smoke Exposure: Never Smokeless Tobacco: Never Tobacco Cessation:Counseling Given: Not Answered Sex and Gender Information Value Date Recorded Sex Assigned at Not on file Legal Sex Male 8:56 PM EDT Gender Identity Not on file Sexual Orientation Not on file Plan of Treatment Upcoming Encounters Date Type Department Care Team ( Contact Info) Description 01/14/2025 1:00 PM EST Office Visit [facility] [address] [place] [address] Alix Swan MD [address] [place] [address] 01/14/2025 3:00 PM EST Consult [facility] [address] [place] [address] Alix Swan MD [address] [place] [address] Health Maintenance Due Date Last Done Comments [facility]-Depression Screening 1944 [facility]-Medicare Annual Wellness (AWV) 1945 [facility]-/Child/Adol SDOH Screenings 1944 [facility]- SDOH Screenings 1962 [facility]-Adult SDOH Screenings 1962 [facility]-Pneumococcal Vaccine: 50+ Years (1 of 1 - PCV) 1994 [facility]-DTaP,Tdap,and Td Vaccines (2 - Td or Tdap) 07/08/2016 07/08/2006 [id number] Vaccine ( - season) 2024 07/10/2021, 11/26/2020, 04/23/2020, Additional history exists [facility]-Influenza Vaccine (#1) 2024 02/18/2024, [facility]-Zoster Vaccines Completed 03/27/2021, [facility]-RSV Vaccine: 60+ Years or Completed 02/18/2024 HPV Vaccines Aged Out No longer eligi ble based on patient's age to complete this topic [facility]-HIB Vaccines Aged Out No longer e ligible based on patient's age to complete this topic [facility]-Hepatitis A Vaccines Aged Out No longer eligible based on patient's age to complete this topic [facility]-IPV Vaccines Aged Out No longer e ligible based on patient's age to complete this topic [facility]-Rotavirus Vaccines Aged Out No lo nger eligible based on patient's age to complete this [place] [address] [facility] Care Teams Assistant Curator Relationship Specialty Start Date End Date Jarett Hurt MD [address] [place] [address] PCP - General 07/11/20
[2025-01-07 10:12] LABS: Alanine Aminotransferase 26 U/L (12-78); Albumin Level 4.3 g/dl (3.5-5.0); Alkaline Phosphatase 71 U/L (38-126); Aspartate Amino Transferase 32 U/L (17-59); Bilirubin,Direct 0.1 mg/dl (0.0-0.4); Bilirubin,Indirect 0.9 mg/dL (0.0-0.9); Bilirubin,Total 1.0 mg/dl (0.2-1.3); Bilirubin,Unconjugated 0.9 mg/dL (0.0-1.1); Magnesium 1.9 mg/dl (1.6-2.3); Total Protein,Serum 7.1 g/dl (6.3-8.2)
[2025-01-07 10:28] LABS: Free T4 (Free Thyroxine) 1.06 ng/dl (0.78-2.19)
[2025-01-07 10:42] LABS: Thyroid Stimulating Hormone 1.46 uIU/mL (0.465-4.68)
[2025-01-08 10:55] LABS: HDL Cholesterol 59 mg/dl (40-60)
[2025-01-08 11:49] LABS: Cholesterol 116 mg/dl (140-200); Triglycerides 65 mg/dl (30-150)
== END 2025-01-07 23:59 | disposition home or self-care (01) ==
LOC: LAB 08:31
PROVIDERS: Family Medicine; PCP Family Medicine; Visit Provider Physician Assistant
DX: I25.10 Atherosclerotic heart disease of native coronary artery without angina pectoris (principal); I44.2 Atrioventricular block, complete; I11.9 Hypertensive heart disease without heart failure; R94.31 Abnormal electrocardiogram [ECG] [EKG]; Z12.5 Encounter for screening for malignant neoplasm of prostate; Z95.5 Presence of coronary angioplasty implant and graft
CPT/HCPCS: 36415; 80061; 80076; 83735; 84439; 84443; G0103